=== PATIENT | male | born 1960 | race Caucasian/White ===

== ENCOUNTER 2018-01-19 11:45 | Inpatient (IN) | payer BC, OTHER ==
[2018-01-19] MEDS ORDERED: Albuterol/Ipratropium 3.0-0.5 MG/3 ML Neb Soln NEB ONE (11:49)
[2018-01-19] MEDS ORDERED: Sodium Chloride 0.9% 1,000 ML IV SCH (12:00)
--- NOTE | 2018-01-19 12:28 | EDM.PDOC ---
ED HPI GENERAL MEDICAL PROBLEM - General Chief Complaint: Chest Pain Stated Complaint: CHEST PAIN AND SHORTNESS OF BREATH Time Seen by Provider: 01/19/18 12:28 Source of Information: Reports: Patient - History of Present Illness INITIAL COMMENTS - FREE TEXT/NARRATIVE: HISTORY AND PHYSICAL: History of present illness: []Patient presents with chest pain and shortness breath increasing over the last month, she has productive sputum ranging from yellow to brown, chest pain is 3 out of 10 nonradiating and reproducible at the apex on the left can also change symptoms with movement of the left arm No fever nausea vomiting chills sweats no headache dizziness palpitation no bowel or urine symptoms Review of systems: As per history of present illness and below otherwise all systems reviewed and negative. Past medical history: As per history of present illness and as reviewed below otherwise noncontributory. Surgical history: As per history of present illness and as reviewed below otherwise noncontributory. Social history: No reported history of drug or alcohol abuse. Family history: As per history of present illness and as reviewed below otherwise noncontributory. Physical exam: HEENT: Atraumatic, normocephalic, pupils reactive, negative for conjunctival pallor or scleral icterus, mucous membranes moist, throat clear, neck supple, nontender, trachea midline. Lungs: Clear to auscultation, breath sounds equal bilaterally, chest nontender. Heart: S1S2, regular, negative for clicks, rubs, or JVD. Abdomen: Soft, nondistended, nontender. Negative for masses or hepatosplenomegaly. Negative for costovertebral tenderness. Pelvis: Stable nontender. Genitourinary: Deferred. Rectal: Deferred. Extremities: Atraumatic, negative for cords or calf pain. Neurovascular unremarkable. Neuro: Awake, alert, oriented. Cranial nerves II through XII unremarkable. Cerebellum unremarkable. Motor and sensory unremarkable throughout. Exam nonfocal. Diagnostics: [CBC CMP troponin EKG Chest 1 view ] Therapeutics: [ saline Zosyn Solu-Medrol DuoNeb ] Impression: [ left upper lobe pneumonia versus mass ] Definitive disposition and diagnosis as appropriate pending reevaluation and review of above. Left Chest Pain Score (Numeric/FACES): 3 - Related Data Allergies Allergy/AdvReac Type Severity Reaction Status Date / Time No Known Allergies Allergy Verified 05/02/15 09:52 Home Meds: Home Meds Albuterol [Proair HFA] 2 puff INH Q4HR PRN 01/24/14 [History] Budesonide/Formoterol [Symbicort 160-4.5 Mcg Inhaler] 10.2 gm IH ASDIRECTED [History] Past Medical History HEENT History: Reports: None Cardiovascular History: Reports: SOB on Exertion Respiratory History: Reports: COPD Gastrointestinal History: Reports: None Genitourinary History: Reports: None Musculoskeletal History: Reports: None Neurological History: Reports: None Psychiatric History: Reports: Anxiety Endocrine/Metabolic History: Reports: None Hematologic History: Reports: None Oncologic (Cancer) History: Reports: None Dermatologic History: Reports: None - Infectious Disease History Infectious Disease History: Reports: None - Past Surgical History HEENT Surgical History: Reports: None GI Surgical History: Reports: None Musculoskeletal Surgical History: Reports: None Social & Family History - Tobacco Use Smoking Status *Q: Former Smoker Used Tobacco, but Quit: Yes Month/Year Tobacco Last Used: 08/2012 - Caffeine Use Caffeine Use: Reports: None - Recreational Drug Use Recreational Drug Use: No ED ROS GENERAL - Review of Systems Review Of Systems: See Below ED EXAM, GENERAL - Physical Exam Exam: See Below Course - Vital Signs Last Recorded V/S: Last Vital Signs Temp 97.1 F 01/19/18 11:53 Pulse 79 01/19/18 11:53 Resp 18 01/19/18 11:53 BP 123/83 01/19/18 11:53 Pulse Ox 95 01/19/18 11:53 - Orders/Labs/Meds Orders: Active Orders 24 hr Category Date Time Status EKG Documentation Completion [RC] STAT Care 01/19/18 11:48 Active RT Aerosol Therapy [RC] ASDIRECTED Care 01/19/18 11:49 Active UA W/MICROSCOPIC [URIN] Stat Lab 01/19/18 11:48 Ordered Piperacillin/Tazobactam [Piperacil-Tazobact] 3.375 gm Med 01/19/18 12:41 Active Sodium Chloride 0.9% [Normal Saline] 50 ml IV ONETIME Sodium Chloride 0.9% [Normal Saline] 1,000 ml Med 01/19/18 12:00 Active IV STAT Medication Orders Sodium Chloride (Normal Saline) 1,000 mls @ 125 mls/hr IV STAT GAYATHRI Last Admin: 01/19/18 12:18 Dose: 125 mls/hr Piperacillin Sod/Tazobactam (Sod 3.375 gm/ Sodium Chloride) 50 mls @ 100 mls/ hr IV ONETIME ONE Stop: 01/19/18 13:10 Labs: Laboratory Tests 01/19/18 01/19/18 01/19/18 Range/Units 11:55 11:55 11:55 WBC 17.83 H (4.0-11.0) K/uL RBC 3.83 L (4.50-5.90) M/uL Hgb 12.3 L (13.0-17.0) g/dL Hct 35.5 L (38.0-50.0) % MCV 92.7 (80.0-98.0) fL MCH 32.1 H (27.0-32.0) pg MCHC 34.6 (31.0-37.0) g/dL RDW Std Deviation 42.2 (28.0-62.0) fl RDW Coeff of Joshua 12 (11.0-15.0) % Plt Count 462 H (150-400) K/uL MPV 11.70 (7.40-12.00) fL Add Manual Diff YES Neutrophils % (Manual) 83 H (48.0-80.0) % Band Neutrophils % 3 % Lymphocytes % (Manual) 9 L (16.0-40.0) % Monocytes % (Manual) 5 (0.0-15.0) % Nucleated RBC % 0.0 /100WBC Absolute Seg Neuts 14.8 H (1.4-5.7) Band Neutrophils # 0.5 Lymphocytes # (Manual) 1.6 (0.6-2.4) Monocytes # (Manual) 0.9 H (0.0-0.8) Nucleated RBCs # 0 K/uL INR 1.13 Sodium 137 (136-148) mmol/L Potassium 3.1 L (3.5-5.1) mmol/L Chloride 100 (98-107) mmol/L Carbon Dioxide 25.4 (21.0-32.0) mmol/L BUN 11 (7.0-18.0) mg/dL Creatinine 1.0 (0.8-1.3) mg/dL Est Cr Clr Drug Dosing TNP Estimated GFR (MDRD) > 60.0 ml/min Glucose 107 H (74-106) mg/dL Calcium 8.7 (8.5-10.1) mg/dL Total Bilirubin 0.3 (0.2-1.0) mg/dL AST 13 L (15-37) IU/L ALT 12 L (14-63) IU/L Alkaline Phosphatase 67 (46-116) U/L Troponin I < 0.050 (0.000-0.056) ng/mL Total Protein 8.4 H (6.4-8.2) g/dL Albumin 2.7 L (3.4-5.0) g/dL Globulin 5.7 H (2.0-3.5) g/dL Albumin/Globulin Ratio 0.5 L (1.3-2.8) Lipase 187 (73-393) U/L Meds: Medications Generic Name Dose Route Start Last Admin Trade Name Freq PRN Reason Stop Dose Admin Sodium Chloride 1,000 mls @ 125 mls/hr 01/19/18 12:00 01/19/18 12:18 Normal Saline IV 125 mls/hr STAT GAYATHRI Administration Piperacillin Sod/Tazobactam 50 mls @ 100 mls/hr 01/19/18 12:41 Sod 3.375 gm/ Sodium Chloride IV 01/19/18 13:10 ONETIME ONE Discontinued Medications Generic Name Dose Route Start Last Admin Trade Name Freq PRN Reason Stop Dose Admin Albuterol/Ipratropium 3 ml 01/19/18 11:49 01/19/18 12:17 Duoneb 3.0-0.5 Mg/3 Ml NEB 01/19/18 11:50 3 ml ONETIME ONE Administration Sodium Chloride Confirm 01/19/18 12:57 Normal Saline Administered 01/19/18 12:58 Dose 50 mls @ as directed .ROUTE .STK-MED ONE Departure - Departure Time of Disposition: 13:03 Disposition: Refer to Observation Condition: Poor Clinical Impression: Cavitary lesion of lung - Discharge Information Forms: ED Department Discharge - My Orders Last 24 Hours: My Active Orders 01/19/18 11:48 EKG Documentation Completion [RC] STAT UA W/MICROSCOPIC [URIN] Stat 01/19/18 11:49 RT Aerosol Therapy [RC] ASDIRECTED 01/19/18 12:00 Sodium Chloride 0.9% [Normal Saline] 1,000 ml IV STAT 01/19/18 12:41 Piperacillin/Tazobactam [Piperacil-Tazobact] 3.375 gm Sodium Chloride 0.9% [ Normal Saline] 50 ml IV ONETIME - Assessment/Plan Last 24 Hours: My Active Orders 01/19/18 11:48 EKG Documentation Completion [RC] STAT UA W/MICROSCOPIC [URIN] Stat 01/19/18 11:49 RT Aerosol Therapy [RC] ASDIRECTED 01/19/18 12:00 Sodium Chloride 0.9% [Normal Saline] 1,000 ml IV STAT 01/19/18 12:41 Piperacillin/Tazobactam [Piperacil-Tazobact] 3.375 gm Sodium Chloride 0.9% [ Normal Saline] 50 ml IV ONETIME
--- NOTE | 2018-01-19 12:31 | CR ---
Portable chest Clinical history: Shortness of breath Comparison: April 30, 2015. Findings: There is airspace density in the left upper lung with cavitation and an air-fluid level. Th is represents either a cavitary mass such as a squamous carcinoma or possible granulomatous process o r gram-negative cavitary pneumonia and such as hemoptysis influenza. Cavitary mass is favored. Right lung is clear. Impression: Cavitary mass/infiltrate left upper lung. Mass is favored. Opportunistic infection or gra m-negative pneumonia is a possibility but less likely
[2018-01-19 12:41] LABS: CHLORIDE,CL 100 mmol/L (98-107); SODIUM,NA 137 mmol/L (136-148)
[2018-01-19] MEDS ORDERED: Piperacillin/Tazobactam 3.375 GM in Sodium Chloride 0.9% 50 ML IV ONE (12:41)
[2018-01-19] MEDS ORDERED: Sodium Chloride 0.9% 50 ML ONE ×2 (12:57→13:04)
[2018-01-19] MEDS ORDERED: Ondansetron 4 MG Tab.DIS PO PRN (14:41)
[2018-01-19] MEDS: Enoxaparin 40 MG/0.4 ML Syringe SUBCUT SCH (15:06)
[2018-01-19] MEDS ORDERED: Iopamidol 755 MG/ML 500 ML Multipack Bottle IVPUSH STA (15:28)
[2018-01-19] MEDS ORDERED: Potassium Chloride 20 MEQ Tab.ER PO ONE (15:35)
--- NOTE | 2018-01-19 15:35 | PCM.HP ---
H&P History of Present Illness - General Date of Service: 01/19/18 Admit Problem/Dx: Admission Diagnosis/Problem Admission Diagnosis/Problem Pneumonia Source of Information: Patient, Old Records (Dr Machado records and CT from 2014) History Limitations: Reports: No Limitations - History of Present Illness Initial Comments - Free Text/Narative: This 57 year old male with pmh of asthma and mild COPD, tobacco use, and alcohol use presented to the ED with concerns of 10 days of productive cough and some chest pain with coughing and moving his L arm. He reports he normally has had a cough but the sputum is always yellow to clear. 10 days ago he awoke and noted brown sputum, which was clear during the day to yellow again. Denies blood in his sputum. He denies feeling fevers chills or significant SOB. He denies URI symptoms. He reports waking up with sweats intermittently but no fevers. He denies malaise, body aches. He reports a few months ago he started dieting to lose weight and has lost 20 lbs intentionally. He reports chest pain , has a feeling of "something up here". (pointing to L upper chest, L axilla, and back). He denies palpitations, abdominal pain, urinary troubles. He is originally from [place], but has been in the [place] area living in his [facility] for 6 years now. He denies out of the country travel recently. He reports quitting smoking 5 years ago and stopped drinking hard alcohol 3-4 weeks ago. He reports drinking quite heavily prior to this but felt he was making his life worse with the alcohol. In the ED leukocytosis noted at 17,830. Hgb 12.3. Platelets 462. K+ 3.1 BMP otherwise normal. troponin negative. CXR revealed "cavitary mass/infiltrate in left upper lung. Mass is favored. Opportunistic infection or gram negative pneumonia is possibility but less likely." VS have been stable. Afebrile. He was treated with ZOsyn, Duoneb and IVFs. He was admitted inpatient for dyspnea and pneumonia or pulmonary mass. Left Chest Pain Score (Numeric/FACES): 2 - Related Data Allergies/Adverse Reactions: Allergies Allergy/AdvReac Type Severity Reaction Status Date / Time No Known Allergies Allergy Verified 05/02/15 09:52 Home Medications: Home Meds Budesonide/Formoterol [Symbicort 160-4.5 Mcg Inhaler] 2 puff IH BID 04/30/15 [ History] Albuterol [Ventolin HFA] 1 puff INH Q4H PRN 01/19/18 [History] Past Medical History HEENT History: Reports: None Cardiovascular History: Reports: SOB on Exertion. Denies: Afib, Blood Clots/VTE /DVT, CAD, High Cholesterol, Hypertension, MS Respiratory History: Reports: Asthma, COPD, SOB Gastrointestinal History: Reports: None. Denies: GERD Genitourinary History: Reports: None Musculoskeletal History: Reports: None Neurological History: Reports: None. Denies: CVA, Migraines, Seizure, TIA Psychiatric History: Reports: Anxiety Endocrine/Metabolic History: Reports: Obesity/BMI 30+. Denies: Diabetes, Type II Hematologic History: Reports: None Oncologic (Cancer) History: Reports: None Dermatologic History: Reports: None - Infectious Disease History Infectious Disease History: Reports: None. Denies: TB - Past Surgical History HEENT Surgical History: Reports: None Respiratory Surgical History: Reports: Tracheostomy, Other (See Below) Other Respiratory Surgeries/Procedures: Had tracheostomy at age 36 due to [place] angina with subsequent I&D of submandibular abscess after infected tooth was extracted GI Surgical History: Reports: None Musculoskeletal Surgical History: Reports: None Social & Family History - Family History Family Medical History: Noncontributory - Tobacco Use Smoking Status *Q: Former Smoker Tobacco Use Within Last Twelve Months: Cigarettes Used Tobacco, but Quit: Yes Month/Year Tobacco Last Used: 2012 - Caffeine Use Caffeine Use: Reports: None - Alcohol Use Alcohol Use History: Yes Date of Last Drink: 12/30/17 - Recreational Drug Use Recreational Drug Use: No - Living Situation & Occupation Living situation: Reports: Single Occupation: Unemployed (Lives in [facility].) H&P Review of Systems - Review of Systems: Review Of Systems: See Below General: Denies: Fever, Chills, Malaise, Fatigue, Night Sweats, Decreased Appetite HEENT: Reports: No Symptoms. Denies: Headaches, Hearing Changes, Sinus Congestion, Sore Throat, Vertigo Pulmonary: Reports: Shortness of Breath, Pleuritic Chest Pain, Cough, Sputum. Denies: Wheezing, Hemoptysis Cardiovascular: Reports: Dyspnea on Exertion. Denies: Chest Pain, Edema, Lightheadedness, Claudication Gastrointestinal: Reports: No Symptoms. Denies: Abdominal Pain, Anorexia, Black Stool, Bloody Stool, Decreased Appetite, Nausea, Vomiting Genitourinary: Reports: No Symptoms. Denies: Dysuria, Frequency, Burning, Pain Musculoskeletal: Reports: No Symptoms Skin: Reports: No Symptoms Psychiatric: Reports: No Symptoms Neurological: Reports: No Symptoms Hematologic/Lymphatic: Reports: No Symptoms Immunologic: Reports: No Symptoms Exam - Exam Exam: See Below - Vital Signs Vital Signs: Last Vital Signs Temp 97.1 F 01/19/18 11:53 Pulse 63 01/19/18 13:40 Resp 18 01/19/18 13:40 BP 112/79 01/19/18 13:40 Pulse Ox 95 01/19/18 11:53 Weight: 99.79 kg - Exam General: Alert, Oriented, Cooperative HEENT: Conjunctiva Clear, Mucosa Moist & Joanna, Nares Patent, Posterior Pharynx Clear Neck: Supple, Trachea Midline. No: Lymphadenopathy Lungs: Normal Respiratory Effort, Crackles (L upper lobe). No: Wheezing Cardiovascular: Regular Rate, Regular Rhythm, Normal S1, Normal S2. No: Systolic Murmur GI/Abdominal Exam: Normal Bowel Sounds, Soft, Non-Tender, No Distention Back Exam: Normal Inspection, Full Range of Motion, NT Extremities: Normal Inspection, Normal Range of Motion, Non-Tender, No Pedal Edema, Normal Capillary Refill, Other (no lymphadenopathy to axilla) Peripheral Pulses: 2+: Posterior Tibial (L), Posterior Tibial (R), Dorsalis Pedis (L), Dorsalis Pedis (R) Neurological: Cranial Nerves Intact Neuro Extensive - Mental Status: Alert, Oriented x3, Normal Mood/Affect, Normal Cognition Neuro Extensive - Motor, Sensory, Reflexes: CN II-XII Intact Psychiatric: Alert, Normal Affect, Normal Mood - Patient Data Lab Results Last 24 hrs: Laboratory Results - last 24 hr 01/19/18 01/19/18 01/19/18 Range/Units 11:55 11:55 11:55 WBC 17.83 H (4.0-11.0) K/uL RBC 3.83 L (4.50-5.90) M/uL Hgb 12.3 L (13.0-17.0) g/dL Hct 35.5 L (38.0-50.0) % MCV 92.7 (80.0-98.0) fL MCH 32.1 H (27.0-32.0) pg MCHC 34.6 (31.0-37.0) g/dL RDW Std Deviation 42.2 (28.0-62.0) fl RDW Coeff of Joshua 12 (11.0-15.0) % Plt Count 462 H (150-400) K/uL MPV 11.70 (7.40-12.00) fL Add Manual Diff YES Neutrophils % (Manual) 83 H (48.0-80.0) % Band Neutrophils % 3 % Lymphocytes % (Manual) 9 L (16.0-40.0) % Monocytes % (Manual) 5 (0.0-15.0) % Nucleated RBC % 0.0 /100WBC Absolute Seg Neuts 14.8 H (1.4-5.7) Band Neutrophils # 0.5 Lymphocytes # (Manual) 1.6 (0.6-2.4) Monocytes # (Manual) 0.9 H (0.0-0.8) Nucleated RBCs # 0 K/uL INR 1.13 Sodium 137 (136-148) mmol/L Potassium 3.1 L (3.5-5.1) mmol/L Chloride 100 (98-107) mmol/L Carbon Dioxide 25.4 (21.0-32.0) mmol/L BUN 11 (7.0-18.0) mg/dL Creatinine 1.0 (0.8-1.3) mg/dL Est Cr Clr Drug Dosing TNP Estimated GFR (MDRD) > 60.0 ml/min Glucose 107 H (74-106) mg/dL Calcium 8.7 (8.5-10.1) mg/dL Total Bilirubin 0.3 (0.2-1.0) mg/dL AST 13 L (15-37) IU/L ALT 12 L (14-63) IU/L Alkaline Phosphatase 67 (46-116) U/L Troponin I < 0.050 (0.000-0.056) ng/mL Total Protein 8.4 H (6.4-8.2) g/dL Albumin 2.7 L (3.4-5.0) g/dL Globulin 5.7 H (2.0-3.5) g/dL Albumin/Globulin Ratio 0.5 L (1.3-2.8) Lipase 187 (73-393) U/L Result Diagrams: 01/19/18 11:55 01/19/18 11:55 *Q Meaningful Use (ADM) - VTE Risk Assess *Q Each Risk Factor Represents 1 Point: Age 41 - 59 years, Abnormal Pulmonary Function (COPD) Total Score 1 Point Risk Factors: 2 Each Risk Factor Represents 2 Points: None Total Score 2 Point Risk Factors: 0 Each Risk Factor Represents 3 Points: None Total Score 3 Point Risk Factors: 0 Each Risk Factor Represents 5 Points: None Total Score 5 Point Risk Factors: 0 Venous Thromboembolism Risk Factor Score *Q: 2 - Problem List (1) Cavitary lesion of lung SNOMED Code(s): 537675312 ICD Code: J98.4 - OTHER DISORDERS OF LUNG Status: Acute Current Visit: No (2) History of tobacco abuse SNOMED Code(s): 0914621872697, 0973247269878 ICD Code: Z87.891 - PERSONAL HISTORY OF NICOTINE DEPENDENCE Status: Chronic Current Visit: Yes (3) Asthma SNOMED Code(s): 614046928 ICD Code: J45.909 - UNSPECIFIED ASTHMA, UNCOMPLICATED Status: Chronic Current Visit: Yes (4) COPD (chronic obstructive pulmonary disease) SNOMED Code(s): 31905950 ICD Code: J44.9 - CHRONIC OBSTRUCTIVE PULMONARY DISEASE, UNSPECIFIED Status : Chronic Current Visit: Yes Qualifiers: COPD type: chronic bronchitis Chronic bronchitis type: simple Qualified Code(s): J41.0 - Simple chronic bronchitis (5) Anxiety SNOMED Code(s): 75405682 ICD Code: F41.9 - ANXIETY DISORDER, UNSPECIFIED Status: Chronic Current Visit: Yes Problem List Initiated/Reviewed/Updated: Yes Orders Last 24hrs: Active Orders 24 hr Category Date Time Status Admission Status [Patient Status] [ADT] Stat ADT 01/19/18 13:04 Active Ambulate [RC] ASDIRECTED Care 01/19/18 14:41 Ordered EKG Documentation Completion [RC] STAT Care 01/19/18 11:48 Active Intake and Output [RC] QSHIFT Care 01/19/18 14:41 Ordered May Shower [RC] ASDIRECTED Care 01/19/18 14:41 Ordered Oxygen Therapy [RC] PRN Care 01/19/18 14:41 Ordered RT Aerosol Therapy [RC] ASDIRECTED Care 01/19/18 11:49 Active RT Aerosol Therapy [RC] ASDIRECTED Care 01/19/18 14:43 Ordered Telemetry Monitoring [Cardiac Monitoring] [RC] . Care 01/19/18 14:45 Ordered DIRECTED Up ad Donna [RC] ASDIRECTED Care 01/19/18 14:41 Ordered VTE/DVT Education [RC] PER UNIT ROUTINE Care 01/19/18 14:41 Ordered Vital Signs [RC] Q4H Care 01/19/18 14:41 Ordered Regular Diet [DIET] Diet 01/19/18 Dinner Ordered Chest w Cont [CT] Urgent Exams 01/19/18 14:40 Ordered BASIC METABOLIC PANEL,BMP [CHEM] AM Lab 01/20/18 05:11 Ordered CBC WITH AUTO DIFF [HEME] AM Lab 01/20/18 05:11 Ordered CULTURE SPUTUM + SMEAR [RM] Stat Lab 01/19/18 14:41 Ordered UA W/MICROSCOPIC [URIN] Stat Lab 01/19/18 11:48 Ordered Acetaminophen [Tylenol] Med 01/19/18 14:41 Ordered 650 mg PO Q4H PRN Albuterol/Ipratropium [DuoNeb 3.0-0.5 MG/3 ML] Med 01/19/18 14:43 Ordered 3 ml NEB Q4HRRT PRN Enoxaparin [Lovenox] Med 01/19/18 14:45 Ordered 40 mg SUBCUT Q24H Ondansetron [Zofran ODT] Med 01/19/18 14:41 Ordered 4 mg PO Q4H PRN Piperacillin/Tazobactam [Piperacil-Tazobact] 4.5 gm Med 01/19/18 18:00 Ordered Sodium Chloride 0.9% [Normal Saline] 100 ml IV Q6H Sodium Chloride 0.9% [Normal Saline] 1,000 ml Med 01/19/18 12:00 Active IV STAT Resuscitation Status Routine Resus Stat 01/19/18 14:41 Ordered Medication Orders Acetaminophen (Tylenol) 650 mg PO Q4H PRN PRN Reason: Pain (mild 1-3) Albuterol/Ipratropium (Duoneb 3.0-0.5 Mg/3 Ml) 3 ml NEB Q4HRRT PRN PRN Reason: dyspnea/wheezing Enoxaparin Sodium (Lovenox) 40 mg SUBCUT Q24H GAYATHRI Last Admin: 01/19/18 15:06 Dose: 40 mg Sodium Chloride (Normal Saline) 1,000 mls @ 125 mls/hr IV STAT GAYATHRI Stop: 01/19/18 23:00 Last Admin: 01/19/18 12:18 Dose: 125 mls/hr Piperacillin Sod/Tazobactam (Sod 4.5 gm/ Sodium Chloride) 100 mls @ 100 mls/hr IV Q6H GAYATHRI Ondansetron HCl (Zofran Odt) 4 mg PO Q4H PRN PRN Reason: nausea, able to take PO Assessment/Plan Comment:: This 57 year old male admitted with a new cavitary lesion to L upper lung, probable mass or pneumonia 1. Cavitary lesion to lung: Leukocytosis, no fevers or malaise. Otherwise well appearing. Will obtain sputum culture. Will obtain Chest CT with contrast today. Zosyn 4.5 gm IV Q6hr to cover for possible infectious process. Has been seeing Pulmonology, Dr Machado in [place]. Last saw her 1 year ago for follow up , at that time he had no concerns. CT of chest 2014, revealed no lung nodules. 2. Asthma/COPD: Continue albuterol PRN and Symbicort. Duonebs PRN. VTE prophylaxis: Lovenox
[2018-01-19] MEDS ORDERED: Albuterol 8 GM Inhaler INH PRN (15:55)
--- NOTE | 2018-01-19 17:18 | PCM.SN ---
- Free Text/Narrative Note: Reviewed CT results with Dr Holland. "Large 6 cm soft tissue mass with central cavitation is present in the left lung apex. Differential diagnosis includes non -small cell lung cancer, bacterial pneumonia with abscess formation, fungal infection such as aspergillosis, and mycobacterial infection. Pulmonary consultation is recommended for management of this finding. This lesion would be amenable to image guided biopsy. Moderate left mediastinal lymphadenopathy could be reactive or metastatic. No other signs of metastatic disease in the chest or upper abdomen Attempted to call pulmonolgy in [place], currently unavailable. Also attempted pulmonology in [facility] and no one is special education associate past 1630. Dr Machado is back special education associate at 0700 tomorrow. At this time will place patient on Airborne precautions and obtain Quantiferon testing along with AFB sputum in the morning. Will call [facility] in am for further recommendations. Discussed with patient results of CT, frustrated with not finding a definitive answer now. I let him know I would be contacting Pulmonology in the morning and educated him on the need for Airborne precautions until we know more. He verbalized understanding.
[2018-01-19] MEDS: Piperacillin/Tazobactam 4.5 GM in Sodium Chloride 0.9% 100 ML IV SCH ×2 (17:46→23:36)
[2018-01-19] MEDS: BUDESONIDE INH SCH (20:14)
[2018-01-19] MEDS: FORMOTEROL INH SCH (20:14)
[2018-01-19] MEDS: Acetaminophen 325 MG Tab PO PRN (23:54)
[2018-01-20 05:33] LABS: CHLORIDE,CL 104 mmol/L (98-107); SODIUM,NA 140 mmol/L (136-148)
[2018-01-20] MEDS: Piperacillin/Tazobactam 4.5 GM in Sodium Chloride 0.9% 100 ML IV SCH ×3 (06:18→17:22)
[2018-01-20] MEDS: Albuterol/Ipratropium 3.0-0.5 MG/3 ML Neb Soln NEB PRN ×2 (08:11→20:59)
[2018-01-20] MEDS: BUDESONIDE INH SCH ×2 (08:18→21:19)
[2018-01-20] MEDS: FORMOTEROL INH SCH ×2 (08:18→21:19)
--- NOTE | 2018-01-20 09:13 | PCM.PN ---
- General Info Date of Service: 01/20/18 Admission Dx/Problem (Free Text): Admission Diagnosis/Problem Admission Diagnosis/Problem Pneumonia Subjective Update: Feeling a little better today. Feels less foggy. Continues to have productive cough, brown tinged in am then progressively improves to yellow throughout the day. No night sweats last night. Functional Status: Reports: Pain Controlled, Tolerating Diet, Ambulating, Urinating - Review of Systems General: Reports: No Symptoms. Denies: Fever, Fatigue, Chills, Night Sweats HEENT: Reports: No Symptoms. Denies: Headaches, Sore Throat, Rhinitis, Visual Changes Pulmonary: Reports: Shortness of Breath (intermittent), Sputum. Denies: Pleuritic Chest Pain, Hemoptysis, Wheezing Cardiovascular: Reports: No Symptoms. Denies: Chest Pain, Palpitations, Edema, Lightheadedness Gastrointestinal: Reports: No Symptoms. Denies: Abdominal Pain, Nausea, Vomiting Genitourinary: Reports: No Symptoms. Denies: Dysuria, Frequency, Burning, Pain Musculoskeletal: Reports: No Symptoms Skin: Reports: No Symptoms Neurological: Reports: No Symptoms Psychiatric: Reports: No Symptoms - Patient Data Vitals - Most Recent: Last Vital Signs Temp 99.1 F 01/20/18 08:00 Pulse 70 01/20/18 04:00 Resp 20 01/20/18 08:00 BP 106/78 01/20/18 08:00 Pulse Ox 92 L 01/20/18 08:00 Weight - Most Recent: 99.79 kg I&O - Last 24 Hours: Intake & Output 01/19/18 01/20/18 01/20/18 22:59 06:59 14:59 Intake Total 1270 1100 320 Output Total 300 Balance 1270 800 320 Lab Results Last 24 Hours: Laboratory Results - last 24 hr 01/19/18 01/19/18 01/19/18 Range/Units 11:55 11:55 11:55 WBC 17.83 H (4.0-11.0) K/uL RBC 3.83 L (4.50-5.90) M/uL Hgb 12.3 L (13.0-17.0) g/dL Hct 35.5 L (38.0-50.0) % MCV 92.7 (80.0-98.0) fL MCH 32.1 H (27.0-32.0) pg MCHC 34.6 (31.0-37.0) g/dL RDW Std Deviation 42.2 (28.0-62.0) fl RDW Coeff of Joshua 12 (11.0-15.0) % Plt Count 462 H (150-400) K/uL MPV 11.70 (7.40-12.00) fL Add Manual Diff YES Neutrophils % (Manual) 83 H (48.0-80.0) % Band Neutrophils % 3 % Lymphocytes % (Manual) 9 L (16.0-40.0) % Monocytes % (Manual) 5 (0.0-15.0) % Eosinophils % (Manual) (0.0-7.0) % Nucleated RBC % 0.0 /100WBC Absolute Seg Neuts 14.8 H (1.4-5.7) Band Neutrophils # 0.5 Lymphocytes # (Manual) 1.6 (0.6-2.4) Monocytes # (Manual) 0.9 H (0.0-0.8) Eosinophils # (Manual) (0.0-0.7) Nucleated RBCs # 0 K/uL INR 1.13 Sodium 137 (136-148) mmol/L Potassium 3.1 L (3.5-5.1) mmol/L Chloride 100 (98-107) mmol/L Carbon Dioxide 25.4 (21.0-32.0) mmol/L BUN 11 (7.0-18.0) mg/dL Creatinine 1.0 (0.8-1.3) mg/dL Est Cr Clr Drug Dosing TNP Estimated GFR (MDRD) > 60.0 ml/min Glucose 107 H (74-106) mg/dL Calcium 8.7 (8.5-10.1) mg/dL Total Bilirubin 0.3 (0.2-1.0) mg/dL AST 13 L (15-37) IU/L ALT 12 L (14-63) IU/L Alkaline Phosphatase 67 (46-116) U/L Troponin I < 0.050 (0.000-0.056) ng/mL Total Protein 8.4 H (6.4-8.2) g/dL Albumin 2.7 L (3.4-5.0) g/dL Globulin 5.7 H (2.0-3.5) g/dL Albumin/Globulin Ratio 0.5 L (1.3-2.8) Lipase 187 (73-393) U/L Urine Color Urine Appearance Urine pH (5.0-8.0) Ur Specific [place] (1.001-1.035) Urine Protein (NEGATIVE) mg/dL Urine Glucose (UA) (NEGATIVE) mg/dL Urine Ketones (NEGATIVE) mg/dL Urine Occult Blood (NEGATIVE) Urine Nitrite (NEGATIVE) Urine Bilirubin (NEGATIVE) Urine Urobilinogen (<2.0) EU/dL Ur Leukocyte Esterase (NEGATIVE) Urine RBC (0-2/HPF) Urine WBC (0-5/HPF) Ur Epithelial Cells (NONE-FEW) Urine Bacteria (NEGATIVE) 01/19/18 01/20/18 01/20/18 Range/Units 17:00 05:02 05:02 WBC 14.25 H (4.0-11.0) K/uL RBC 3.31 L (4.50-5.90) M/uL Hgb 10.6 L (13.0-17.0) g/dL Hct 31.0 L (38.0-50.0) % MCV 93.7 (80.0-98.0) fL MCH 32.0 (27.0-32.0) pg MCHC 34.2 (31.0-37.0) g/dL RDW Std Deviation 42.3 (28.0-62.0) fl RDW Coeff of Joshua 13 (11.0-15.0) % Plt Count 406 H (150-400) K/uL MPV 11.70 (7.40-12.00) fL Add Manual Diff YES Neutrophils % (Manual) 81 H (48.0-80.0) % Band Neutrophils % 3 % Lymphocytes % (Manual) 8 L (16.0-40.0) % Monocytes % (Manual) 6 (0.0-15.0) % Eosinophils % (Manual) 1 (0.0-7.0) % Nucleated RBC % 0.0 /100WBC Absolute Seg Neuts 11.5 H (1.4-5.7) Band Neutrophils # 0.4 Lymphocytes # (Manual) 1.1 (0.6-2.4) Monocytes # (Manual) 0.9 H (0.0-0.8) Eosinophils # (Manual) 0.1 (0.0-0.7) Nucleated RBCs # 0 K/uL INR Sodium 140 (136-148) mmol/L Potassium 3.4 L (3.5-5.1) mmol/L Chloride 104 (98-107) mmol/L Carbon Dioxide 26.3 (21.0-32.0) mmol/L BUN 8 (7.0-18.0) mg/dL Creatinine 0.9 (0.8-1.3) mg/dL Est Cr Clr Drug Dosing 83.65 Estimated GFR (MDRD) > 60.0 ml/min Glucose 104 (74-106) mg/dL Calcium 8.4 L (8.5-10.1) mg/dL Total Bilirubin (0.2-1.0) mg/dL AST (15-37) IU/L ALT (14-63) IU/L Alkaline Phosphatase (46-116) U/L Troponin I (0.000-0.056) ng/mL Total Protein (6.4-8.2) g/dL Albumin (3.4-5.0) g/dL Globulin (2.0-3.5) g/dL Albumin/Globulin Ratio (1.3-2.8) Lipase (73-393) U/L Urine Color YELLOW Urine Appearance CLEAR Urine pH 6.0 (5.0-8.0) Ur Specific [place] 1.010 (1.001-1.035) Urine Protein NEGATIVE (NEGATIVE) mg/dL Urine Glucose (UA) NEGATIVE (NEGATIVE) mg/dL Urine Ketones TRACE H (NEGATIVE) mg/dL Urine Occult Blood NEGATIVE (NEGATIVE) Urine Nitrite NEGATIVE (NEGATIVE) Urine Bilirubin NEGATIVE (NEGATIVE) Urine Urobilinogen 0.2 (<2.0) EU/dL Ur Leukocyte Esterase NEGATIVE (NEGATIVE) Urine RBC 0-1 (0-2/HPF) Urine WBC 0-1 (0-5/HPF) Ur Epithelial Cells RARE (NONE-FEW) Urine Bacteria RARE (NEGATIVE) Reggie Results Last 24 Hours: Microbiology 01/19/18 16:00 Gram Stain - Preliminary Sputum - Expectorated Med Orders - Current: Current Medications Acetaminophen (Tylenol) 650 mg PO Q4H PRN PRN Reason: Pain (mild 1-3) Last Admin: 01/19/18 23:54 Dose: 650 mg Albuterol (Ventolin Hfa) 8 gm INH Q4H PRN PRN Reason: Shortness of Breath Albuterol/Ipratropium (Duoneb 3.0-0.5 Mg/3 Ml) 3 ml NEB Q4HRRT PRN PRN Reason: dyspnea/wheezing Last Admin: 01/20/18 08:11 Dose: 3 ml Enoxaparin Sodium (Lovenox) 40 mg SUBCUT Q24H [facility] Last Admin: 01/19/18 15:06 Dose: 40 mg Piperacillin Sod/Tazobactam (Sod 4.5 gm/ Sodium Chloride) 100 mls @ 100 mls/hr IV Q6H [facility] Last Admin: 01/20/18 06:18 Dose: 100 mls/hr Ondansetron HCl (Zofran Odt) 4 mg PO Q4H PRN PRN Reason: nausea, able to take PO Budesonide/Formoterol [ Symbicort 160-4.5 Mcg] 2 Puff 1 each INH BID [facility] Last Admin: 01/20/18 08:18 Dose: Not Given Discontinued Medications Albuterol/Ipratropium (Duoneb 3.0-0.5 Mg/3 Ml) 3 ml NEB ONETIME ONE Stop: 01/19/18 11:50 Last Admin: 01/19/18 12:17 Dose: 3 ml Sodium Chloride (Normal Saline) 1,000 mls @ 125 mls/hr IV STAT [facility] Stop: 01/19/18 23:00 Last Admin: 01/19/18 12:18 Dose: 125 mls/hr Piperacillin Sod/Tazobactam (Sod 3.375 gm/ Sodium Chloride) 50 mls @ 100 mls/ hr IV ONETIME ONE Stop: 01/19/18 13:10 Last Admin: 01/19/18 13:10 Dose: 100 mls/hr Sodium Chloride (Normal Saline) Confirm Administered Dose 50 mls @ as directed .ROUTE .STK-MED ONE Stop: 01/19/18 12:58 Last Admin: 01/19/18 14:59 Dose: Not Given Sodium Chloride (Normal Saline) Confirm Administered Dose 50 mls @ as directed .ROUTE .STK-MED ONE Stop: 01/19/18 13:05 Last Admin: 01/19/18 14:59 Dose: Not Given Iopamidol (Isovue Multipack-370 (76%)) 75 ml IVPUSH ONETIME STA Stop: 01/19/18 15:29 Last Admin: 01/19/18 15:44 Dose: 75 ml Potassium Chloride (Klor-Con M20) 40 meq PO ONETIME ONE Stop: 01/19/18 15:36 Last Admin: 01/19/18 16:01 Dose: 40 meq - Exam Quality Assessment: DVT Prophylaxis. No: Supplemental Oxygen General: Alert, Oriented, Cooperative, No Acute Distress Neck: Supple Lungs: Normal Respiratory Effort, Crackles (L upper lobe), Rhonchi Cardiovascular: Regular Rate, Regular Rhythm GI/Abdominal Exam: Normal Bowel Sounds, Soft, Non-Tender, No Distention Extremities: Normal Inspection, Normal Range of Motion, Non-Tender, No Pedal Edema, Normal Capillary Refill Wound/Incisions: Healing Well Neurological: No New Focal Deficit Psy/Mental Status: Alert, Normal Affect, Normal Mood - Problem List & Annotations (1) Cavitary lesion of lung SNOMED Code(s): 107793471 Code(s): J98.4 - OTHER DISORDERS OF LUNG Status: Acute Current Visit: No (2) History of tobacco abuse SNOMED Code(s): 1643612419879, 4346240901753 Code(s): Z87.891 - PERSONAL HISTORY OF NICOTINE DEPENDENCE Status: Chronic Current Visit: Yes (3) Asthma SNOMED Code(s): 584446415 Code(s): J45.909 - UNSPECIFIED ASTHMA, UNCOMPLICATED Status: Chronic Current Visit: Yes (4) COPD (chronic obstructive pulmonary disease) SNOMED Code(s): 92539089 Code(s): J44.9 - CHRONIC OBSTRUCTIVE PULMONARY DISEASE, UNSPECIFIED Status : Chronic Current Visit: Yes Qualifiers: COPD type: chronic bronchitis Chronic bronchitis type: simple Qualified Code(s): J41.0 - Simple chronic bronchitis (5) Anxiety SNOMED Code(s): 78102128 Code(s): F41.9 - ANXIETY DISORDER, UNSPECIFIED Status: Chronic Current Visit: Yes - Problem List Review Problem List Initiated/Reviewed/Updated: Yes - My Orders Last 24 Hours: My Active Orders 01/19/18 14:40 Chest w Cont [CT] Urgent 01/19/18 14:41 Ambulate [RC] ASDIRECTED Intake and Output [RC] Q12H May Shower [RC] ASDIRECTED Oxygen Therapy [RC] PRN Up ad Donna [RC] ASDIRECTED VTE/DVT Education [RC] PER UNIT ROUTINE Vital Signs [RC] Q4H Acetaminophen [Tylenol] 650 mg PO Q4H PRN Ondansetron [Zofran ODT] 4 mg PO Q4H PRN Resuscitation Status Routine 01/19/18 14:43 RT Aerosol Therapy [RC] ASDIRECTED Albuterol/Ipratropium [DuoNeb 3.0-0.5 MG/3 ML] 3 ml NEB Q4HRRT PRN 01/19/18 14:45 Telemetry Monitoring [Cardiac Monitoring] [RC] Q8H Enoxaparin [Lovenox] 40 mg SUBCUT Q24H 01/19/18 15:55 Albuterol [Ventolin HFA] 8 gm INH Q4H PRN 01/19/18 16:00 AFB STAIN WITH CULTURE Routine CULTURE SPUTUM + SMEAR [RM] Stat 01/19/18 16:29 Specimens to Lab, Nursing [RC] ASDIRECTED 01/19/18 17:45 QUANTIFERON CLIENT INCUBATED [REF] Stat 01/19/18 18:00 Piperacillin/Tazobactam [Piperacil-Tazobact] 4.5 gm Sodium Chloride 0.9% [ Normal Saline] 100 ml IV Q6H 01/19/18 21:00 Patient's Own Medication [Ptom] 1 each INH BID 01/19/18 Dinner Regular Diet [DIET] - Plan Plan:: This 57 year old male admitted with a new cavitary lesion to L upper lung, probable mass or pneumonia 1. Cavitary lesion to lung: Leukocytosis, improving. 14,000 this morning. Continues to improve. CT revealed cavitary lesion with multiple possible etiologies. Continue Zosyn 4.5 gm IV Q6hr to cover for possible anaerobic and gram negative infectious process. I was able to speak with Dr Machado this morning. She does recommended obtaining 3 AFB sputums, along with agreeing with Zosyn for infectious process. She also recommended fungal sputum cultures along with aspergillus workup including, aspergillus IgG antibodies, histoplasmosis, galactomannon, and beta-D glucan. She also requested information to be sent to her via PACS and fax so she can review. I will contact her later today and discuss disposition and follow up. She suggested if this is infectious he may need 3-6 weeks antibiotics and depending on if lesion is improving via CT or not as well as possible biopsy to rule out malignancy. All of this was discussed with Dr Holland as well as Kavya. Kavya understands and agrees with need for further labwork, that may take a while to return. He also understands Airborne precautions due to the need to rule out TB. Quantiferon serum is pending. 2. Asthma/COPD: Continue albuterol PRN and Symbicort. Duonebs PRN. VTE prophylaxis: Lovenox Dispo: Will change to inpatient status due further need for evaluation of cavitary lesion and IV antibiotics.
[2018-01-20] MEDS: Acetaminophen 325 MG Tab PO PRN ×2 (11:57→20:56)
--- NOTE | 2018-01-20 13:01 | CT ---
EXAM DATE: 01/20/18 PATIENT'S AGE: 57 Patient: YAKELIN RAO Facility: [place], [place] Site . Site : 1960 Study: CT Chest [id number] 3:57:45 PM Ordering Physician: Amalia Nino Final Report: INDICATION: Cough and shortness of breath TECHNIQUE: CT chest was acquired with IV contrast. COMPARISON: None. FINDINGS: Lungs and pleural: There is a large soft tissue mass in the left lung apex. The mass measures approximately 6 cm in diameter and contains a large central area of cavitation with a fluid level. Moderate interstitial infiltrates are in the region around the mass. No other masses or nodules. There is bilateral central peribronchial soft tissue thickening. Trace left pleural effusion is present. Heart and vasculature: Heart size is normal. Thoracic aorta and pulmonary artery are normal in caliber.Coronary artery atherosclerosis is present. Lymph nodes/mediastinum: There are multiple moderately enlarged lymph nodes in the left mediastinum. No mass or lymphadenopathy elsewhere. Thyroid gland is normal. Chest wall: No masses. Upper abdomen: Normal. Bones: Unremarkable for age. IMPRESSION: 1. Large 6 cm soft tissue mass with central cavitation is present in the left lung apex. Differential diagnosis includes non-small cell lung cancer, bacterial pneumonia with abscess formation, fungal infection such as aspergillosis, and mycobacterial infection. Pulmonary consultation is recommended for management of this finding. This lesion would be amenable to image guided biopsy. 2. Moderate left mediastinal lymphadenopathy could be reactive or metastatic. No other signs of metastatic disease in the chest or upper abdomen. 3. Coronary artery atherosclerosis. Please note that all CT scans at this facility use dose modulation, iterative reconstruction, and/or weight-based dosing when appropriate to reduce radiation dose to as low as reasonably achievable. Dictated by Grover Daniel MD @ Jan 19 2018 3:58PM (Electronic Signature) Report Signed by Proxy. JIMI
[2018-01-20] MEDS: Enoxaparin 40 MG/0.4 ML Syringe SUBCUT SCH (13:44)
[2018-01-20] MEDS ORDERED: Tuberculin, PPD 5 Units/0.1 ML 1 ML MDV IDERM ONE ×2 (15:05→15:50)
--- NOTE | 2018-01-20 15:13 | PCM.SN ---
- Free Text/Narrative Note: Spoke with both Dr Machado again, who recommends continued antibiotics treatment for suspicous cavitary lesion to L upper lobe. She recommends talking with Infectious disease for follow up and further recommendations on antibiotic treatment. Dr Machado would like to see improvement prior to going in and doing a biopsy or bronchoscopy due to the risk of spreading this infection to other parts of the lung. She feels this is highly suspicious for infection vs malignancy but feels biopsy may still be in Kavya's future. I spoke with Dr Baxter, ID at [facility]. She agrees with Alka, alone, especially if we are seeing improvement already. If Staph aureus were to grow in cultures or if he stops improving she would add Vancomycin. She recommends keeping patient inpatient until we are able to rule out TB. Then outpatient follow up on fungal cultures is ok. She recommends AT LEAST 2 weeks of IV antibiotics and switching to Invanz daily on discharge would be reasonable. She will see him as outpatient and will follow with Chest CT in 2 weeks to monitor improvement and determine if Kavya needs extended IV treatment or if significant improvement is seen she would transition to PO antibiotics for most likely 6 weeks. I spoke with Dr Holland regarding these conversations, and he is agreeable. I also spoke with Kavya to update him on potential course of treatment. He is in agreement and understanding it is important to rule out TB. We will continue with Alka for now and monitor him here. He understands he will need PICC line placement coming this Tuesday for [facility] antibiotics and understands he will need to come to the infusion center daily for this. Which he again is agreeable to.
[2018-01-20] MEDS ORDERED: Tuberculin, PPD 5 Units/0.1 ML 1 ML MDV ONE (15:50)
[2018-01-21] MEDS: Piperacillin/Tazobactam 4.5 GM in Sodium Chloride 0.9% 100 ML IV SCH ×6 (06:00→23:28)
[2018-01-21 06:33] LABS: CHLORIDE,CL 104 mmol/L (98-107); SODIUM,NA 140 mmol/L (136-148)
[2018-01-21] MEDS: BUDESONIDE INH SCH ×2 (08:48→20:00)
[2018-01-21] MEDS: FORMOTEROL INH SCH ×2 (08:48→20:00)
[2018-01-21] MEDS: Albuterol/Ipratropium 3.0-0.5 MG/3 ML Neb Soln NEB PRN ×2 (11:20→23:28)
[2018-01-21] MEDS ORDERED: Potassium Chloride 20 MEQ Tab.ER PO ONE (12:16)
--- NOTE | 2018-01-21 12:37 | PCM.PN ---
- General Info Date of Service: 01/21/18 - Review of Systems Systems Review Comment:: shortness of breath and chest pain improved - Patient Data Vitals - Most Recent: Last Vital Signs Temp 37.0 C 01/21/18 11:54 Pulse 85 01/21/18 11:54 Resp 16 01/21/18 11:54 BP 106/66 01/21/18 11:54 Pulse Ox 93 L 01/21/18 11:54 Weight - Most Recent: 99.79 kg I&O - Last 24 Hours: Intake & Output 01/20/18 01/21/18 01/21/18 22:59 06:59 14:59 Intake Total 820 100 Balance 820 100 Lab Results Last 24 Hours: Laboratory Results - last 24 hr 01/21/18 01/21/18 Range/Units 06:05 06:05 WBC 13.64 H (4.0-11.0) K/uL RBC 3.33 L (4.50-5.90) M/uL Hgb 10.5 L (13.0-17.0) g/dL Hct 31.4 L (38.0-50.0) % MCV 94.3 (80.0-98.0) fL MCH 31.5 (27.0-32.0) pg MCHC 33.4 (31.0-37.0) g/dL RDW Std Deviation 42.5 (28.0-62.0) fl RDW Coeff of Joshua 13 (11.0-15.0) % Plt Count 404 H (150-400) K/uL MPV 11.90 (7.40-12.00) fL Neut % (Auto) 78.8 (48.0-80.0) % Lymph % (Auto) 9.8 L (16.0-40.0) % [place] % (Auto) 9.2 (0.0-15.0) % Eos % (Auto) 2.0 (0.0-7.0) % Baso % (Auto) 0.2 (0.0-1.5) % Neut # (Auto) 10.7 H (1.4-5.7) K/uL Lymph # (Auto) 1.3 (0.6-2.4) K/uL [place] # (Auto) 1.3 H (0.0-0.8) K/uL Eos # (Auto) 0.3 (0.0-0.7) K/uL Baso # (Auto) 0.0 (0.0-0.1) K/uL Nucleated RBC % 0.0 /100WBC Nucleated RBCs # 0 K/uL Sodium 140 (136-148) mmol/L Potassium 3.3 L (3.5-5.1) mmol/L Chloride 104 (98-107) mmol/L Carbon Dioxide 25.9 (21.0-32.0) mmol/L BUN 6 L (7.0-18.0) mg/dL Creatinine 0.9 (0.8-1.3) mg/dL Est Cr Clr Drug Dosing 83.65 mL/min Estimated GFR (MDRD) > 60.0 ml/min Glucose 113 H (74-106) mg/dL Calcium 8.3 L (8.5-10.1) mg/dL Med Orders - Current: Current Medications Acetaminophen (Tylenol) 650 mg PO Q4H PRN PRN Reason: Pain (mild 1-3) Last Admin: 01/20/18 20:56 Dose: 650 mg Albuterol (Ventolin Hfa) 8 gm INH Q4H PRN PRN Reason: Shortness of Breath Albuterol/Ipratropium (Duoneb 3.0-0.5 Mg/3 Ml) 3 ml NEB Q4HRRT PRN PRN Reason: dyspnea/wheezing Last Admin: 01/20/18 20:59 Dose: 3 ml Enoxaparin Sodium (Lovenox) 40 mg SUBCUT Q24H [facility] Last Admin: 01/20/18 13:44 Dose: 40 mg Piperacillin Sod/Tazobactam (Sod 4.5 gm/ Sodium Chloride) 100 mls @ 100 mls/hr IV Q6H [facility] Last Admin: 01/21/18 11:19 Dose: 100 mls/hr Ondansetron HCl (Zofran Odt) 4 mg PO Q4H PRN PRN Reason: nausea, able to take PO Budesonide/Formoterol [ Symbicort 160-4.5 Mcg] 2 Puff 1 each INH BID [facility] Last Admin: 01/21/18 08:48 Dose: Not Given Discontinued Medications Albuterol/Ipratropium (Duoneb 3.0-0.5 Mg/3 Ml) 3 ml NEB ONETIME ONE Stop: 01/19/18 11:50 Last Admin: 01/19/18 12:17 Dose: 3 ml Sodium Chloride (Normal Saline) 1,000 mls @ 125 mls/hr IV STAT [facility] Stop: 01/19/18 23:00 Last Admin: 01/19/18 12:18 Dose: 125 mls/hr Piperacillin Sod/Tazobactam (Sod 3.375 gm/ Sodium Chloride) 50 mls @ 100 mls/ hr IV ONETIME ONE Stop: 01/19/18 13:10 Last Admin: 01/19/18 13:10 Dose: 100 mls/hr Sodium Chloride (Normal Saline) Confirm Administered Dose 50 mls @ as directed .ROUTE .STK-MED ONE Stop: 01/19/18 12:58 Last Admin: 01/19/18 14:59 Dose: Not Given Sodium Chloride (Normal Saline) Confirm Administered Dose 50 mls @ as directed .ROUTE .STK-MED ONE Stop: 01/19/18 13:05 Last Admin: 01/19/18 14:59 Dose: Not Given Iopamidol (Isovue Multipack-370 (76%)) 75 ml IVPUSH ONETIME STA Stop: 01/19/18 15:29 Last Admin: 01/19/18 15:44 Dose: 75 ml Potassium Chloride (Klor-Con M20) 40 meq PO ONETIME ONE Stop: 01/19/18 15:36 Last Admin: 01/19/18 16:01 Dose: 40 meq Potassium Chloride (Klor-Con M20) 40 meq PO ONETIME ONE Stop: 01/21/18 12:17 Tuberculin PPD (Aplisol) 5 unit IDERM ONETIME ONE Stop: 01/20/18 15:06 Last Admin: 01/20/18 15:55 Dose: 5 unit - Exam General: Alert, Oriented Lungs: Clear to Auscultation, Normal Respiratory Effort Cardiovascular: Regular Rate, Regular Rhythm GI/Abdominal Exam: Soft, Non-Tender Extremities: Non-Tender, No Pedal Edema Skin: Warm, Dry, Intact Neurological: No New Focal Deficit - Problem List Review Problem List Initiated/Reviewed/Updated: Yes - Plan Plan:: This 57 year old male admitted with a new cavitary lesion to L upper lung, probable mass or pneumonia 1. Cavitary lesion to lung: Continue zosyn, geting daily sputum cultures to rule out TB 2. Asthma/COPD: Continue albuterol PRN and Symbicort. Duonebs PRN. VTE prophylaxis: Lovenox
[2018-01-21] MEDS: Enoxaparin 40 MG/0.4 ML Syringe SUBCUT SCH (15:33)
[2018-01-21] MEDS: Acetaminophen 325 MG Tab PO PRN (23:54)
[2018-01-22] MEDS: Piperacillin/Tazobactam 4.5 GM in Sodium Chloride 0.9% 100 ML IV SCH ×4 (05:27→23:15)
[2018-01-22 06:03] LABS: CHLORIDE,CL 106 mmol/L (98-107); SODIUM,NA 140 mmol/L (136-148)
[2018-01-22] MEDS: BUDESONIDE INH SCH ×2 (08:33→20:15)
[2018-01-22] MEDS: FORMOTEROL INH SCH ×2 (08:33→20:15)
--- NOTE | 2018-01-22 09:32 | PCM.PN ---
- General Info Date of Service: 01/22/18 Subjective Update: Complaining of persistent cough thats unchanged. No other new complaints. - Review of Systems General: Reports: No Symptoms HEENT: Reports: No Symptoms Pulmonary: Reports: No Symptoms Cardiovascular: Reports: No Symptoms Gastrointestinal: Reports: No Symptoms Genitourinary: Reports: No Symptoms Musculoskeletal: Reports: No Symptoms Skin: Reports: No Symptoms Neurological: Reports: No Symptoms Psychiatric: Reports: No Symptoms - Patient Data Vitals - Most Recent: Last Vital Signs Temp 36.9 C 01/22/18 07:35 Pulse 61 01/22/18 07:35 Resp 18 01/22/18 07:35 BP 127/68 01/22/18 07:35 Pulse Ox 92 L 01/22/18 07:35 Weight - Most Recent: 99.79 kg I&O - Last 24 Hours: Intake & Output 01/21/18 01/22/18 01/22/18 22:59 06:59 14:59 Intake Total 1900 1300 Output Total 400 Balance 1900 900 Lab Results Last 24 Hours: Laboratory Results - last 24 hr 01/22/18 01/22/18 Range/Units 05:34 05:34 WBC 10.88 (4.0-11.0) K/uL RBC 3.44 L (4.50-5.90) M/uL Hgb 10.5 L (13.0-17.0) g/dL Hct 32.3 L (38.0-50.0) % MCV 93.9 (80.0-98.0) fL MCH 30.5 (27.0-32.0) pg MCHC 32.5 (31.0-37.0) g/dL RDW Std Deviation 43.6 (28.0-62.0) fl RDW Coeff of Joshua 13 (11.0-15.0) % Plt Count 363 (150-400) K/uL MPV 11.50 (7.40-12.00) fL Add Manual Diff YES Neutrophils % (Manual) 70 (48.0-80.0) % Band Neutrophils % 2 % Lymphocytes % (Manual) 15 L (16.0-40.0) % Monocytes % (Manual) 9 (0.0-15.0) % Eosinophils % (Manual) 1 (0.0-7.0) % Basophils % (Manual) 1 (0.0-1.5) % Nucleated RBC % 0.0 /100WBC Absolute Seg Neuts 7.6 H (1.4-5.7) Band Neutrophils # 0.2 Lymphocytes # (Manual) 1.6 (0.6-2.4) Monocytes # (Manual) 1.0 H (0.0-0.8) Eosinophils # (Manual) 0.1 (0.0-0.7) Basophils # (Manual) 0.1 (0.0-0.1) Nucleated RBCs # 0 K/uL Sodium 140 (136-148) mmol/L Potassium 3.6 (3.5-5.1) mmol/L Chloride 106 (98-107) mmol/L Carbon Dioxide 26.6 (21.0-32.0) mmol/L BUN 6 L (7.0-18.0) mg/dL Creatinine 0.9 (0.8-1.3) mg/dL Est Cr Clr Drug Dosing 83.65 mL/min Estimated GFR (MDRD) > 60.0 ml/min Glucose 112 H (74-106) mg/dL Calcium 8.6 (8.5-10.1) mg/dL Reggie Results Last 24 Hours: Microbiology 01/19/18 16:00 Gram Stain - Preliminary Sputum - Expectorated Med Orders - Current: Current Medications Acetaminophen (Tylenol) 650 mg PO Q4H PRN PRN Reason: Pain (mild 1-3) Last Admin: 01/21/18 23:54 Dose: 650 mg Albuterol (Ventolin Hfa) 8 gm INH Q4H PRN PRN Reason: Shortness of Breath Albuterol/Ipratropium (Duoneb 3.0-0.5 Mg/3 Ml) 3 ml NEB Q4HRRT PRN PRN Reason: dyspnea/wheezing Last Admin: 01/21/18 23:28 Dose: 3 ml Enoxaparin Sodium (Lovenox) 40 mg SUBCUT Q24H GAYATHRI Last Admin: 01/21/18 15:33 Dose: 40 mg Piperacillin Sod/Tazobactam (Sod 4.5 gm/ Sodium Chloride) 100 mls @ 100 mls/hr IV Q6H GAYATHRI Last Admin: 01/22/18 05:27 Dose: 100 mls/hr Ondansetron HCl (Zofran Odt) 4 mg PO Q4H PRN PRN Reason: nausea, able to take PO Budesonide/Formoterol [ Symbicort 160-4.5 Mcg] 2 Puff 1 each INH BID GAYATHRI Last Admin: 01/22/18 08:33 Dose: Not Given Discontinued Medications Albuterol/Ipratropium (Duoneb 3.0-0.5 Mg/3 Ml) 3 ml NEB ONETIME ONE Stop: 01/19/18 11:50 Last Admin: 01/19/18 12:17 Dose: 3 ml Sodium Chloride (Normal Saline) 1,000 mls @ 125 mls/hr IV STAT GAYATHRI Stop: 01/19/18 23:00 Last Admin: 01/19/18 12:18 Dose: 125 mls/hr Piperacillin Sod/Tazobactam (Sod 3.375 gm/ Sodium Chloride) 50 mls @ 100 mls/ hr IV ONETIME ONE Stop: 01/19/18 13:10 Last Admin: 01/19/18 13:10 Dose: 100 mls/hr Sodium Chloride (Normal Saline) Confirm Administered Dose 50 mls @ as directed .ROUTE .STK-MED ONE Stop: 01/19/18 12:58 Last Admin: 01/19/18 14:59 Dose: Not Given Sodium Chloride (Normal Saline) Confirm Administered Dose 50 mls @ as directed .ROUTE .STK-MED ONE Stop: 01/19/18 13:05 Last Admin: 01/19/18 14:59 Dose: Not Given Iopamidol (Isovue Multipack-370 (76%)) 75 ml IVPUSH ONETIME STA Stop: 01/19/18 15:29 Last Admin: 01/19/18 15:44 Dose: 75 ml Potassium Chloride (Klor-Con M20) 40 meq PO ONETIME ONE Stop: 01/19/18 15:36 Last Admin: 01/19/18 16:01 Dose: 40 meq Potassium Chloride (Klor-Con M20) 40 meq PO ONETIME ONE Stop: 01/21/18 12:17 Last Admin: 01/21/18 12:36 Dose: 40 meq Tuberculin PPD (Aplisol) 5 unit IDERM ONETIME ONE Stop: 01/20/18 15:06 Last Admin: 01/20/18 15:55 Dose: 5 unit - Exam General: Alert, Oriented, Cooperative HEENT: Pupils Equal, Pupils Reactive, EOMI, Mucous Membr. Moist/[place] Neck: Supple Lungs: Clear to Auscultation, Normal Respiratory Effort Cardiovascular: Regular Rate, Regular Rhythm GI/Abdominal Exam: Normal Bowel Sounds, Soft, Non-Tender, No Organomegaly, No Distention Back Exam: Normal Inspection, Full Range of Motion Extremities: Normal Inspection, No Pedal Edema Peripheral Pulses: 2+: Dorsalis Pedis (L), Dorsalis Pedis (R) Psy/Mental Status: Alert, Anxious - Problem List Review Problem List Initiated/Reviewed/Updated: Yes - Plan Plan:: Assessment/Plan: #1. RAY cavitary lesion - pneumonia vs. TB vs. malignancy. Scheduled for picc line placement tomorrow for senior care antibiotics, DC tomorrow. To get a repeat CT scan in two weeks to assess cavitary lesion of suspicion. Will be seeing pulmonology in the upcoming few weeks as well. #2. Leukocytosis - improved #3. Asthma/COPD - PRN meds as ordered
[2018-01-22] MEDS: Albuterol/Ipratropium 3.0-0.5 MG/3 ML Neb Soln NEB PRN ×2 (11:41→23:13)
[2018-01-22] MEDS: Enoxaparin 40 MG/0.4 ML Syringe SUBCUT SCH (15:49)
[2018-01-23] MEDS: Piperacillin/Tazobactam 4.5 GM in Sodium Chloride 0.9% 100 ML IV SCH ×4 (05:32→23:27)
[2018-01-23 06:27] LABS: CHLORIDE,CL 106 mmol/L (98-107); SODIUM,NA 141 mmol/L (136-148)
[2018-01-23] MEDS: FORMOTEROL INH SCH (10:01)
[2018-01-23] MEDS: BUDESONIDE INH SCH (10:01)
[2018-01-23] MEDS: Fluticasone/Salmeterol 250-50 MCG Inhalation Powder 14/Diskus INH SCH ×2 (11:56→21:13)
--- NOTE | 2018-01-23 12:02 | PCM.PN ---
- General Info Date of Service: 01/23/18 Admission Dx/Problem (Free Text): Admission Diagnosis/Problem Admission Diagnosis/Problem Pneumonia Subjective Update: Feeling somewhat improved today. Cough and shortness of breath continue to improve. Cough becoming less productive and sputum more yellow to clear now. NO chest pain. No other concerns. Eager to hear back about TB Functional Status: Reports: Pain Controlled, Tolerating Diet, Ambulating - Review of Systems General: Reports: No Symptoms. Denies: Fever, Weakness, Fatigue, Malaise HEENT: Reports: No Symptoms. Denies: Sore Throat, Rhinitis, Visual Changes Pulmonary: Reports: Shortness of Breath (improving and intermittent), Cough, Sputum (clear to yellow). Denies: Hemoptysis, Wheezing Cardiovascular: Reports: No Symptoms. Denies: Chest Pain Gastrointestinal: Reports: No Symptoms. Denies: Abdominal Pain, Nausea, Vomiting Genitourinary: Reports: No Symptoms. Denies: Dysuria, Frequency, Burning Musculoskeletal: Reports: No Symptoms Skin: Reports: No Symptoms Neurological: Reports: No Symptoms Psychiatric: Reports: No Symptoms - Patient Data Vitals - Most Recent: Last Vital Signs Temp 98 F 01/23/18 08:00 Pulse 71 01/23/18 08:00 Resp 19 01/23/18 08:00 BP 133/74 01/23/18 08:00 Pulse Ox 93 L 01/23/18 08:00 Weight - Most Recent: 99.79 kg I&O - Last 24 Hours: Intake & Output 01/22/18 01/23/18 01/23/18 22:59 06:59 14:59 Intake Total 1480 1000 Output Total 0 Balance 1480 1000 Lab Results Last 24 Hours: Laboratory Results - last 24 hr 01/23/18 01/23/18 Range/Units 05:42 05:42 WBC 10.94 (4.0-11.0) K/uL RBC 3.30 L (4.50-5.90) M/uL Hgb 10.3 L (13.0-17.0) g/dL Hct 31.1 L (38.0-50.0) % MCV 94.2 (80.0-98.0) fL MCH 31.2 (27.0-32.0) pg MCHC 33.1 (31.0-37.0) g/dL RDW Std Deviation 44.1 (28.0-62.0) fl RDW Coeff of Joshua 13 (11.0-15.0) % Plt Count 375 (150-400) K/uL MPV 11.80 (7.40-12.00) fL Neut % (Auto) 73.3 (48.0-80.0) % Lymph % (Auto) 15.1 L (16.0-40.0) % [place] % (Auto) 7.4 (0.0-15.0) % Eos % (Auto) 3.7 (0.0-7.0) % Baso % (Auto) 0.5 (0.0-1.5) % Neut # (Auto) 8.0 H (1.4-5.7) K/uL Lymph # (Auto) 1.7 (0.6-2.4) K/uL [place] # (Auto) 0.8 (0.0-0.8) K/uL Eos # (Auto) 0.4 (0.0-0.7) K/uL Baso # (Auto) 0.1 (0.0-0.1) K/uL Nucleated RBC % 0.0 /100WBC Nucleated RBCs # 0 K/uL Sodium 141 (136-148) mmol/L Potassium 3.6 (3.5-5.1) mmol/L Chloride 106 (98-107) mmol/L Carbon Dioxide 24.9 (21.0-32.0) mmol/L BUN 7 (7.0-18.0) mg/dL Creatinine 1.0 (0.8-1.3) mg/dL Est Cr Clr Drug Dosing 75.28 mL/min Estimated GFR (MDRD) > 60.0 ml/min Glucose 116 H (74-106) mg/dL Calcium 8.4 L (8.5-10.1) mg/dL Reggie Results Last 24 Hours: Microbiology 01/19/18 16:00 Gram Stain - Preliminary Sputum - Expectorated Sputum Culture - Final Normal Respiratory Uri Med Orders - Current: Current Medications Acetaminophen (Tylenol) 650 mg PO Q4H PRN PRN Reason: Pain (mild 1-3) Last Admin: 01/21/18 23:54 Dose: 650 mg Albuterol (Ventolin Hfa) 8 gm INH Q4H PRN PRN Reason: Shortness of Breath Albuterol/Ipratropium (Duoneb 3.0-0.5 Mg/3 Ml) 3 ml NEB Q4HRRT PRN PRN Reason: dyspnea/wheezing Last Admin: 01/22/18 23:13 Dose: 3 ml Enoxaparin Sodium (Lovenox) 40 mg SUBCUT Q24H GAYATHRI Last Admin: 01/22/18 15:49 Dose: 40 mg Piperacillin Sod/Tazobactam (Sod 4.5 gm/ Sodium Chloride) 100 mls @ 100 mls/hr IV Q6H GAYATHRI Last Admin: 01/23/18 05:32 Dose: 100 mls/hr Ondansetron HCl (Zofran Odt) 4 mg PO Q4H PRN PRN Reason: nausea, able to take PO Fluticasone/Salmeterol (Advair Diskus 250-50) 1 puff INH BID GAYATHRI Last Admin: 01/23/18 11:56 Dose: 1 puff Discontinued Medications Albuterol/Ipratropium (Duoneb 3.0-0.5 Mg/3 Ml) 3 ml NEB ONETIME ONE Stop: 01/19/18 11:50 Last Admin: 01/19/18 12:17 Dose: 3 ml Sodium Chloride (Normal Saline) 1,000 mls @ 125 mls/hr IV STAT GAYATHRI Stop: 01/19/18 23:00 Last Admin: 01/19/18 12:18 Dose: 125 mls/hr Piperacillin Sod/Tazobactam (Sod 3.375 gm/ Sodium Chloride) 50 mls @ 100 mls/ hr IV ONETIME ONE Stop: 01/19/18 13:10 Last Admin: 01/19/18 13:10 Dose: 100 mls/hr Sodium Chloride (Normal Saline) Confirm Administered Dose 50 mls @ as directed .ROUTE .STK-MED ONE Stop: 01/19/18 12:58 Last Admin: 01/19/18 14:59 Dose: Not Given Sodium Chloride (Normal Saline) Confirm Administered Dose 50 mls @ as directed .ROUTE .STK-MED ONE Stop: 01/19/18 13:05 Last Admin: 01/19/18 14:59 Dose: Not Given Iopamidol (Isovue Multipack-370 (76%)) 75 ml IVPUSH ONETIME STA Stop: 01/19/18 15:29 Last Admin: 01/19/18 15:44 Dose: 75 ml Budesonide/Formoterol [ Symbicort 160-4.5 Mcg] 2 Puff 1 each INH BID GAYATHRI Last Admin: 01/23/18 10:01 Dose: Not Given Potassium Chloride (Klor-Con M20) 40 meq PO ONETIME ONE Stop: 01/19/18 15:36 Last Admin: 01/19/18 16:01 Dose: 40 meq Potassium Chloride (Klor-Con M20) 40 meq PO ONETIME ONE Stop: 01/21/18 12:17 Last Admin: 01/21/18 12:36 Dose: 40 meq Tuberculin PPD (Aplisol) 5 unit IDERM ONETIME ONE Stop: 01/20/18 15:06 Last Admin: 01/20/18 15:55 Dose: 5 unit - Exam General: Alert, Oriented, Cooperative, No Acute Distress Neck: Supple Lungs: Normal Respiratory Effort, Rhonchi, Wheezing (scant and to RAY) Cardiovascular: Regular Rate, Regular Rhythm GI/Abdominal Exam: Normal Bowel Sounds, Soft, Non-Tender, No Organomegaly, No Distention, No Abnormal Bruit, No Mass, Pelvis Stable Extremities: Normal Inspection, Normal Range of Motion, Non-Tender, No Pedal Edema, Normal Capillary Refill Neurological: No New Focal Deficit Psy/Mental Status: Alert, Normal Affect, Normal Mood - Problem List & Annotations (1) Cavitary lesion of lung SNOMED Code(s): 428891611 Code(s): J98.4 - OTHER DISORDERS OF LUNG Status: Acute Current Visit: No (2) History of tobacco abuse SNOMED Code(s): 7921152118962, 4266914606384 Code(s): Z87.891 - PERSONAL HISTORY OF NICOTINE DEPENDENCE Status: Chronic Current Visit: Yes (3) Asthma SNOMED Code(s): 007992689 Code(s): J45.909 - UNSPECIFIED ASTHMA, UNCOMPLICATED Status: Chronic Current Visit: Yes (4) COPD (chronic obstructive pulmonary disease) SNOMED Code(s): 46147808 Code(s): J44.9 - CHRONIC OBSTRUCTIVE PULMONARY DISEASE, UNSPECIFIED Status : Chronic Current Visit: Yes Qualifiers: COPD type: chronic bronchitis Chronic bronchitis type: simple Qualified Code(s): J41.0 - Simple chronic bronchitis (5) Anxiety SNOMED Code(s): 48018832 Code(s): F41.9 - ANXIETY DISORDER, UNSPECIFIED Status: Chronic Current Visit: Yes - Problem List Review Problem List Initiated/Reviewed/Updated: Yes - My Orders Last 24 Hours: My Active Orders 01/23/18 07:52 PICC Line Insertion [CR] Routine 01/23/18 09:20 RT Post Treatment Assessment [RC] Click to Edit RT Pre-Treatment Assessment [RC] Click to Edit 01/23/18 09:30 Fluticasone/Salmeterol [Advair Diskus 250-50] 1 puff INH BID - Plan Plan:: This 57 year old male admitted with a new cavitary lesion to L upper lung, probable mass or pneumonia 1. Cavitary lesion to lung: Leukocytosis, resolved. Continues to improve.Continue Zosyn 4.5 gm IV Q6hr to cover for possible anaerobic and gram negative infectious process. Tuberculin skin test negative. AFB all three sputums sent, awaiting smear results. First smear should return in next couple days. Quantiferon pending as well. I spoke with Dr Baxter who suggested waiting until at least one AFB smear returned and if negative he could be discharged. He will have PICC line placed today. Coordinate outpatient IV therapy with [place]. Regular sputum culture normal respiratory uri. Fungal and AFB still pending. Outpatient appointments set up with Dr Baxter, ID and Dr Machado, Pulmonology 2. Asthma/COPD: Continue albuterol PRN. Duonebs PRN. Reports he has not taken SYmbicort. Will start Advair. VTE prophylaxis: Lovenox Dispo: Pending AFB smear, 2-3 days.
[2018-01-23] MEDS: Enoxaparin 40 MG/0.4 ML Syringe SUBCUT SCH ×2 (13:46→15:24)
--- NOTE | 2018-01-23 15:57 | CR ---
EXAMINATION: Fluoro and ultrasound guided left-sided PICC line placement. HISTORY: Long-term antibiotics. TECHNIQUE/FINDINGS: After written informed consent was obtained from the patient using ultrasound an d Fluoro guidance under aseptic conditions utilizing 1% lidocaine as local anesthesia left basilic ve in was accessed and 5 [place] PICC catheter was deployed with its tip in the distal superior vena cava . The catheter flushes and withdraws blood well. The catheter is flushed with the diluted heparin. T he catheter secured well. IMPRESSION: Successful Fluoro and ultrasound guided left PICC line placement.
--- NOTE | 2018-01-23 15:57 | CR ---
EXAMINATION: Fluoro and ultrasound guided left-sided PICC line placement. HISTORY: Long-term antibiotics. TECHNIQUE/FINDINGS: After written informed consent was obtained from the patient using ultrasound an d Fluoro guidance under aseptic conditions utilizing 1% lidocaine as local anesthesia left basilic ve in was accessed and 5 [place] PICC catheter was deployed with its tip in the distal superior vena cava . The catheter flushes and withdraws blood well. The catheter is flushed with the diluted heparin. T he catheter secured well. IMPRESSION: Successful Fluoro and ultrasound guided left PICC line placement.
[2018-01-23] MEDS: Albuterol/Ipratropium 3.0-0.5 MG/3 ML Neb Soln NEB PRN (18:54)
[2018-01-24] MEDS: Piperacillin/Tazobactam 4.5 GM in Sodium Chloride 0.9% 100 ML IV SCH (05:07)
[2018-01-24 06:01] LABS: CHLORIDE,CL 107 mmol/L (98-107); SODIUM,NA 141 mmol/L (136-148)
[2018-01-24] MEDS: Fluticasone/Salmeterol 250-50 MCG Inhalation Powder 14/Diskus INH SCH ×2 (09:16→21:13)
--- NOTE | 2018-01-24 10:55 | PCM.PN ---
- General Info Date of Service: 01/24/18 Admission Dx/Problem (Free Text): Admission Diagnosis/Problem Admission Diagnosis/Problem Pneumonia Subjective Update: Feeling better today. Coughing less, and sputum is now mainly yellow in color. No other complaints. Eager to have results and be discharged home. Functional Status: Reports: Pain Controlled, Tolerating Diet, Ambulating, Urinating - Review of Systems General: Reports: No Symptoms. Denies: Fever, Weakness, Fatigue HEENT: Reports: No Symptoms. Denies: Headaches, Sore Throat, Visual Changes Pulmonary: Reports: Cough, Sputum (yellow). Denies: Hemoptysis, Wheezing Cardiovascular: Reports: No Symptoms. Denies: Chest Pain, Palpitations, Edema Gastrointestinal: Reports: No Symptoms. Denies: Abdominal Pain Psychiatric: Reports: No Symptoms - Patient Data Vitals - Most Recent: Last Vital Signs Temp 97.8 F 01/24/18 08:00 Pulse 71 01/24/18 08:00 Resp 17 01/24/18 08:00 BP 119/84 01/24/18 08:00 Pulse Ox 94 L 01/24/18 08:00 Weight - Most Recent: 99.79 kg I&O - Last 24 Hours: Intake & Output 01/23/18 01/24/18 01/24/18 22:59 06:59 14:59 Intake Total 1300 900 Output Total 0 Balance 1300 900 Lab Results Last 24 Hours: Laboratory Results - last 24 hr 01/24/18 01/24/18 Range/Units 05:05 05:05 WBC 10.55 (4.0-11.0) K/uL RBC 3.34 L (4.50-5.90) M/uL Hgb 10.5 L (13.0-17.0) g/dL Hct 31.7 L (38.0-50.0) % MCV 94.9 (80.0-98.0) fL MCH 31.4 (27.0-32.0) pg MCHC 33.1 (31.0-37.0) g/dL RDW Std Deviation 45.0 (28.0-62.0) fl RDW Coeff of Joshua 13 (11.0-15.0) % Plt Count 360 (150-400) K/uL MPV 11.80 (7.40-12.00) fL Neut % (Auto) 71.7 (48.0-80.0) % Lymph % (Auto) 16.9 (16.0-40.0) % [place] % (Auto) 7.1 (0.0-15.0) % Eos % (Auto) 3.9 (0.0-7.0) % Baso % (Auto) 0.4 (0.0-1.5) % Neut # (Auto) 7.6 H (1.4-5.7) K/uL Lymph # (Auto) 1.8 (0.6-2.4) K/uL [place] # (Auto) 0.8 (0.0-0.8) K/uL Eos # (Auto) 0.4 (0.0-0.7) K/uL Baso # (Auto) 0.0 (0.0-0.1) K/uL Nucleated RBC % 0.0 /100WBC Nucleated RBCs # 0 K/uL Sodium 141 (136-148) mmol/L Potassium 3.9 (3.5-5.1) mmol/L Chloride 107 (98-107) mmol/L Carbon Dioxide 24.7 (21.0-32.0) mmol/L BUN 8 (7.0-18.0) mg/dL Creatinine 1.0 (0.8-1.3) mg/dL Est Cr Clr Drug Dosing 75.28 mL/min Estimated GFR (MDRD) > 60.0 ml/min Glucose 119 H (74-106) mg/dL Calcium 8.8 (8.5-10.1) mg/dL Reggie Results Last 24 Hours: Microbiology 01/19/18 16:00 Gram Stain - Final Sputum - Expectorated Sputum Culture - Final Normal Respiratory Uri Med Orders - Current: Current Medications Acetaminophen (Tylenol) 650 mg PO Q4H PRN PRN Reason: Pain (mild 1-3) Last Admin: 01/21/18 23:54 Dose: 650 mg Albuterol (Ventolin Hfa) 8 gm INH Q4H PRN PRN Reason: Shortness of Breath Albuterol/Ipratropium (Duoneb 3.0-0.5 Mg/3 Ml) 3 ml NEB Q4HRRT PRN PRN Reason: dyspnea/wheezing Last Admin: 01/23/18 18:54 Dose: 3 ml Enoxaparin Sodium (Lovenox) 40 mg SUBCUT Q24H [facility] Last Admin: 01/23/18 15:24 Dose: 40 mg Piperacillin Sod/Tazobactam (Sod 4.5 gm/ Sodium Chloride) 100 mls @ 100 mls/hr IV Q6H GAYATHRI Last Admin: 01/24/18 05:07 Dose: 100 mls/hr Ondansetron HCl (Zofran Odt) 4 mg PO Q4H PRN PRN Reason: nausea, able to take PO Fluticasone/Salmeterol (Advair Diskus 250-50) 1 puff INH BID [facility] Last Admin: 01/24/18 09:16 Dose: 1 puff Discontinued Medications Albuterol/Ipratropium (Duoneb 3.0-0.5 Mg/3 Ml) 3 ml NEB ONETIME ONE Stop: 01/19/18 11:50 Last Admin: 01/19/18 12:17 Dose: 3 ml Sodium Chloride (Normal Saline) 1,000 mls @ 125 mls/hr IV STAT GAYATHRI Stop: 01/19/18 23:00 Last Admin: 01/19/18 12:18 Dose: 125 mls/hr Piperacillin Sod/Tazobactam (Sod 3.375 gm/ Sodium Chloride) 50 mls @ 100 mls/ hr IV ONETIME ONE Stop: 01/19/18 13:10 Last Admin: 01/19/18 13:10 Dose: 100 mls/hr Sodium Chloride (Normal Saline) Confirm Administered Dose 50 mls @ as directed .ROUTE .STK-MED ONE Stop: 01/19/18 12:58 Last Admin: 01/19/18 14:59 Dose: Not Given Sodium Chloride (Normal Saline) Confirm Administered Dose 50 mls @ as directed .ROUTE .STK-MED ONE Stop: 01/19/18 13:05 Last Admin: 01/19/18 14:59 Dose: Not Given Iopamidol (Isovue Multipack-370 (76%)) 75 ml IVPUSH ONETIME STA Stop: 01/19/18 15:29 Last Admin: 01/19/18 15:44 Dose: 75 ml Budesonide/Formoterol [ Symbicort 160-4.5 Mcg] 2 Puff 1 each INH BID [facility] Last Admin: 01/23/18 10:01 Dose: Not Given Potassium Chloride (Klor-Con M20) 40 meq PO ONETIME ONE Stop: 01/19/18 15:36 Last Admin: 01/19/18 16:01 Dose: 40 meq Potassium Chloride (Klor-Con M20) 40 meq PO ONETIME ONE Stop: 01/21/18 12:17 Last Admin: 01/21/18 12:36 Dose: 40 meq Tuberculin PPD (Aplisol) 5 unit IDERM ONETIME ONE Stop: 01/20/18 15:06 Last Admin: 01/20/18 15:55 Dose: 5 unit Tuberculin PPD (Aplisol) 5 unit IDERM ONETIME ONE Stop: 01/20/18 15:51 Tuberculin PPD (Aplisol) 5 unit .ROUTE .STK-MED ONE Stop: 01/20/18 15:51 - Exam General: Alert, Oriented, Cooperative, No Acute Distress Lungs: Clear to Auscultation, Normal Respiratory Effort Cardiovascular: Regular Rate, Regular Rhythm GI/Abdominal Exam: Normal Bowel Sounds, Soft Extremities: Normal Inspection, Normal Range of Motion, No Pedal Edema Neurological: No New Focal Deficit Psy/Mental Status: Alert, Normal Affect, Normal Mood - Problem List & Annotations (1) Cavitary lesion of lung SNOMED Code(s): 598315630 Code(s): J98.4 - OTHER DISORDERS OF LUNG Status: Acute Current Visit: No (2) History of tobacco abuse SNOMED Code(s): 5507742626429, 6649670029204 Code(s): Z87.891 - PERSONAL HISTORY OF NICOTINE DEPENDENCE Status: Chronic Current Visit: Yes (3) Asthma SNOMED Code(s): 773842708 Code(s): J45.909 - UNSPECIFIED ASTHMA, UNCOMPLICATED Status: Chronic Current Visit: Yes (4) COPD (chronic obstructive pulmonary disease) SNOMED Code(s): 29571487 Code(s): J44.9 - CHRONIC OBSTRUCTIVE PULMONARY DISEASE, UNSPECIFIED Status : Chronic Current Visit: Yes Qualifiers: COPD type: chronic bronchitis Chronic bronchitis type: simple Qualified Code(s): J41.0 - Simple chronic bronchitis (5) Anxiety SNOMED Code(s): 29717016 Code(s): F41.9 - ANXIETY DISORDER, UNSPECIFIED Status: Chronic Current Visit: Yes - Problem List Review Problem List Initiated/Reviewed/Updated: Yes - My Orders Last 24 Hours: My Active Orders 01/25/18 05:11 BMP [BASIC METABOLIC PANEL,BMP] [CHEM] AM CBC WITH AUTO DIFF [HEME] AM 01/26/18 05:11 BMP [BASIC METABOLIC PANEL,BMP] [CHEM] AM CBC WITH AUTO DIFF [HEME] AM - Plan Plan:: This 57 year old male admitted with a new cavitary lesion to L upper lung, probable mass or pneumonia 1. Cavitary lesion to lung: Leukocytosis, resolved. Continues to improve.Will transition to Invanz daily IV for daily IV therapy daily. Tuberculin skin test negative. AFB all three sputums sent. First smear negative, awaiting final two to confirm negative TB. Quantiferon pending as well. PICC line placed. Coordinate outpatient IV therapy with Invanz. Regular sputum culture normal respiratory uri. Fungal pending. Outpatient appointments set up with Dr Baxter, [place] and Dr Machado, Pulmonology 2. Asthma/COPD: Continue albuterol PRN. Duonebs PRN. Tolerating Advair. VTE prophylaxis: Lovenox Dispo: Pending AFB smear, 1-2 days.
[2018-01-24] MEDS ORDERED: Ertapenem 1 GM in Sodium Chloride 0.9% 50 ML IV SCH (11:00)
[2018-01-24] MEDS: Ertapenem 1 GM in Sodium Chloride 0.9% 50 ML IV SCH (12:11)
[2018-01-24] MEDS: Enoxaparin 40 MG/0.4 ML Syringe SUBCUT SCH (14:30)
[2018-01-25 06:33] LABS: CHLORIDE,CL 106 mmol/L (98-107); SODIUM,NA 139 mmol/L (136-148)
[2018-01-25] MEDS: Fluticasone/Salmeterol 250-50 MCG Inhalation Powder 14/Diskus INH SCH (09:02)
--- NOTE | 2018-01-25 10:46 | PCM.DCSUM1 ---
Discharge Summary - Hospital Course Brief History: This 57 year old male with pmh of asthma and mild COPD, tobacco use, and alcohol use presented to the ED with concerns of 10 days of productive cough and some chest pain with coughing and moving his L arm. He reports he normally has had a cough but the sputum is always yellow to clear. 10 days ago he awoke and noted brown sputum, which was clear during the day to yellow again. Denies blood in his sputum. He denies feeling fevers chills or significant SOB. He denies URI symptoms. He reports waking up with sweats intermittently but no fevers. He denies malaise, body aches. He reports a few months ago he started dieting to lose weight and has lost 20 lbs intentionally. He reports chest pain, has a feeling of "something up here". (pointing to L upper chest, L axilla, and back). He denies palpitations, abdominal pain, urinary troubles. He is originally from [place], but has been in the [facility] living in his banner for 6 years now. He denies out of the country travel recently. He reports quitting smoking 5 years ago and stopped drinking hard alcohol 3-4 weeks ago. He reports drinking quite heavily prior to this but felt he was making his life worse with the alcohol. In the ED leukocytosis noted at 17,830. Hgb 12.3. Platelets 462. K+ 3.1 BMP otherwise normal. troponin negative. CXR revealed "cavitary mass/infiltrate in left upper lung. Mass is favored. Opportunistic infection or gram negative pneumonia is possibility but less likely." VS have been stable. Afebrile. He was treated with ZOsyn, Duoneb and IVFs. He was admitted inpatient for dyspnea and pneumonia or pulmonary mass. - Discharge Data Discharge Date: 01/25/18 Discharge Disposition: Home, Self-Care 01 Condition: Stable - Discharge Diagnosis/Problem(s) (1) Cavitary lesion of lung SNOMED Code(s): 405620353 ICD Code: J98.4 - OTHER DISORDERS OF LUNG Status: Acute Current Visit: No (2) History of tobacco abuse SNOMED Code(s): 5698231428991, 4274095575350 ICD Code: Z87.891 - PERSONAL HISTORY OF NICOTINE DEPENDENCE Status: Chronic Current Visit: Yes (3) Asthma SNOMED Code(s): 547025129 ICD Code: J45.909 - UNSPECIFIED ASTHMA, UNCOMPLICATED Status: Chronic Current Visit: Yes (4) COPD (chronic obstructive pulmonary disease) SNOMED Code(s): 87876918 ICD Code: J44.9 - CHRONIC OBSTRUCTIVE PULMONARY DISEASE, UNSPECIFIED Status : Chronic Current Visit: Yes Qualifiers: COPD type: chronic bronchitis Chronic bronchitis type: simple Qualified Code(s): J41.0 - Simple chronic bronchitis (5) Anxiety SNOMED Code(s): 81205300 ICD Code: F41.9 - ANXIETY DISORDER, UNSPECIFIED Status: Chronic Current Visit: Yes (6) Ludwigs angina SNOMED Code(s): 578253740 ICD Code: K12.2 - CELLULITIS AND ABSCESS OF MOUTH Status: Chronic Current Visit: Yes (7) Hx of tracheostomy SNOMED Code(s): 412618941 ICD Code: Z98.890 - OTHER SPECIFIED POSTPROCEDURAL STATES Status: Chronic Current Visit: Yes (8) History of ETOH abuse SNOMED Code(s): 599237484 ICD Code: Z87.898 - PERSONAL HISTORY OF OTHER SPECIFIED CONDITIONS Status: Chronic Current Visit: Yes - Patient Instructions Diet: Usual Diet as Tolerated Activity: As Tolerated, No Strenuous Activities Driving: May Drive Today Showering/Bathing: May Shower (Cover PICC line. ) Notify Provider of: Fever, Increased Pain, Swelling and Redness, Drainage, Nausea and/or Vomiting - Discharge Plan Prescriptions/Med Rec: Albuterol [Ventolin HFA] 1 puff INH Q4H PRN #1 inhaler PRN Reason: Shortness Of Breath Ertapenem [INVanz] 1 gm IV Q24H #7 vial Fluticasone/Salmeterol [Advair 250-50] 1 puff INH BID #1 diskus Home Medications: Home Meds Acetaminophen [Tylenol] 650 mg PO Q4H PRN tablet 01/25/18 [Rx] Albuterol [Ventolin HFA] 1 puff INH Q4H PRN #1 inhaler 01/25/18 [Rx] Ertapenem [INVanz] 1 gm IV Q24H #7 vial 01/25/18 [Rx] Fluticasone/Salmeterol [Advair 250-50] 1 puff INH BID #1 diskus 01/25/18 [Rx] Patient Handouts: PICC Home Care Guide, Central Line, Adult, [id number] Referrals: Festus Baxter MD [Ordering Only Provider] - 01/30/18 4:00 pm (Please check in at 3:30 p.m.) Shauna Burnett NP [Nurse Practitioner] - 01/31/18 10:00 am Rebecca Machado MD [Ordering Only Provider] - 03/17/18 1:20 pm - Discharge Summary/Plan Comment DC Time >30 min.: No Discharge Summary/Plan Comment: Discharge Diagnoses: Cavitary lesion, RAY Asthma Mild COPD Anxiety Hx tobacco abuse Hx ETOH abuse Hx Lencho's angina Hx Tracheostomy Kavya was admitted for dyspnea and cough that had been persistant over 10 days , mild fevers and productive cough. Initial CXR in ED revealed RAY cavitary lesion, CT recommended for further evaluation. CT of chest revealed "Large 6 cm soft tissue mass with central cavitation is present in the left lung apex. Differential diagnosis includes non-small cell lung cancer, bacterial pneumonia with abscess formation, fungal infection such as aspergillosis, and mycobacterial infection. Pulmonary consultation is recommended for management of this finding. This lesion would be amenable to image guided biopsy. Moderate left mediastinal lymphadenopathy could be reactive or metastatic. No other signs of metastatic disease in the chest or upper abdomen." At this time I discussed this imaging with Dr Machado, Pulmonology at [facility]. She recommended ID consultation and treatment for possible lung abscess, anaerobic pneumonia and felt Zosyn was good. She did not want to perform any type of biopsy acutely due to the risk of infection. But he may need biopsy of this mass at some point to rule out malignancy and further investigate mass. Leukocytosis noted on admission at 17,000. She also did recommend ruling of TB. He was placed on Airborne precautions, we obtained AFB sputum x 3, Performed tuberculin skin testing and obtained Quantiferon gold testing as well. We also sent sputum and work up for aspergillosis, which are still pending at this time. TB work-up revealed all three AFB smears to be negative for AFB, cultures still pending with [facility] lab. Tuberculin skin testing, after 72 hours as negative and Quatiferon gold returned negative as well. I spoke with Dr Baxter who agreed with this work up and recommended at least 2 weeks of IV antibiotics, Invanz 1 gm. She would see patient and would like a repeat chest CT in 2-3 weeks to evaluate cavitary lung mass for improvement. She would then decide if further IV therapy would be needed and order this. Zosyn was continued throughout stay, leukocytosis resolved. No longer febrile. Cough has improved significantly, no only mildy productive and yellow to clear. He is very eager for discharge. PICC line was placed to L upper arm for IV therapy. He will be set up for outpatient IV therapy, Invaz 1 gm IV daily. he was highly encouraged to stay free of smoking and alcohol, which he adamantly agrees with and will not start using again. He had run out of Symbicort and requested to be changed to something else. He was placed on Advair and he has reported improvement in wheezing and dyspnea. He will be continued on this for now and will see Pulmonology as outpatient for further evaluation. He is to return to the ED or clinic if concerns should arise. He will be instructed on outpatient IV therapy course and follow up as they are arranged. Kavya is aware of the follow ups in place and is very agreeable to make each of these appointment. PCP Shauna Burnett, [facility] here in [place]. Along with Dr Baxter, ID in [facility], [place] and Dr Machado, pulmonology in [place]. - General Info Date of Service: 01/25/18 Admission Dx/Problem (Free Text: Admission Diagnosis/Problem Admission Diagnosis/Problem Pneumonia Subjective Update: Feeling good today. Cough continues intermittently, but much improved. No chest pain or SOB. no other concerns. Eager to be discharged today. Functional Status: Reports: Pain Controlled, Tolerating Diet, Ambulating, Urinating - Review of Systems General: Reports: No Symptoms. Denies: Fever, Weakness, Fatigue HEENT: Reports: No Symptoms Pulmonary: Reports: Cough, Sputum (yellow). Denies: Shortness of Breath, Hemoptysis, Wheezing Cardiovascular: Reports: No Symptoms. Denies: Chest Pain Gastrointestinal: Reports: No Symptoms. Denies: Abdominal Pain, Nausea, Vomiting Genitourinary: Reports: No Symptoms. Denies: Dysuria, Frequency, Burning Neurological: Reports: No Symptoms Psychiatric: Reports: No Symptoms - Patient Data Vitals - Most Recent: Last Vital Signs Temp 97.5 F 01/25/18 04:00 Pulse 73 01/25/18 08:00 Resp 12 01/25/18 08:00 BP 125/76 01/25/18 08:00 Pulse Ox 94 L 01/25/18 08:00 Weight - Most Recent: 99.79 kg I&O - Last 24 hours: Intake & Output 01/24/18 01/25/18 01/25/18 22:59 06:59 14:59 Intake Total 1500 300 Output Total 2000 Balance -500 300 Lab Results - Last 24 hrs: Laboratory Results - last 24 hr 01/19/18 01/25/18 01/25/18 Range/Units 17:45 06:00 06:00 WBC 9.47 (4.0-11.0) K/uL RBC 3.56 L (4.50-5.90) M/uL Hgb 11.2 L (13.0-17.0) g/dL Hct 33.6 L (38.0-50.0) % MCV 94.4 (80.0-98.0) fL MCH 31.5 (27.0-32.0) pg MCHC 33.3 (31.0-37.0) g/dL RDW Std Deviation 44.4 (28.0-62.0) fl RDW Coeff of Joshua 13 (11.0-15.0) % Plt Count 367 (150-400) K/uL MPV 11.40 (7.40-12.00) fL Neut % (Auto) 68.8 (48.0-80.0) % Lymph % (Auto) 18.6 (16.0-40.0) % [place] % (Auto) 8.7 (0.0-15.0) % Eos % (Auto) 3.6 (0.0-7.0) % Baso % (Auto) 0.3 (0.0-1.5) % Neut # (Auto) 6.5 H (1.4-5.7) K/uL Lymph # (Auto) 1.8 (0.6-2.4) K/uL [place] # (Auto) 0.8 (0.0-0.8) K/uL Eos # (Auto) 0.3 (0.0-0.7) K/uL Baso # (Auto) 0.0 (0.0-0.1) K/uL Nucleated RBC % 0.0 /100WBC Nucleated RBCs # 0 K/uL Sodium 139 (136-148) mmol/L Potassium 4.1 (3.5-5.1) mmol/L Chloride 106 (98-107) mmol/L Carbon Dioxide 26.2 (21.0-32.0) mmol/L BUN 8 (7.0-18.0) mg/dL Creatinine 0.9 (0.8-1.3) mg/dL Est Cr Clr Drug Dosing 83.65 mL/min Estimated GFR (MDRD) > 60.0 ml/min Glucose 115 H (74-106) mg/dL Calcium 8.9 (8.5-10.1) mg/dL TB (QFT) Gold In Tube Negative (Negative) TB Test (QFT) Nil 0.09 IU/mL TB Test (QFT) Mitogen >10.00 IU/mL TB Test (QFT) Antigen 0.08 IU/mL TB Test Antigen - Nil <0.00 IU/mL TB Positive Criteria Comment TB Test (QFT) Interp Comment TONY Results - Last 24 hrs: Microbiology 01/19/18 16:00 Gram Stain - Final Sputum - Expectorated Sputum Culture - Final Normal Respiratory Denise Med Orders - Current: Current Medications Acetaminophen (Tylenol) 650 mg PO Q4H PRN PRN Reason: Pain (mild 1-3) Last Admin: 01/21/18 23:54 Dose: 650 mg Albuterol (Ventolin Hfa) 8 gm INH Q4H PRN PRN Reason: Shortness of Breath Albuterol/Ipratropium (Duoneb 3.0-0.5 Mg/3 Ml) 3 ml NEB Q4HRRT PRN PRN Reason: dyspnea/wheezing Last Admin: 01/23/18 18:54 Dose: 3 ml Enoxaparin Sodium (Lovenox) 40 mg SUBCUT Q24H GAYATHRI Last Admin: 01/24/18 14:30 Dose: 40 mg Ertapenem 1 gm/ Sodium (Chloride) 50 mls @ 100 mls/hr IV Q24H GAYATHRI Last Admin: 01/24/18 12:11 Dose: 100 mls/hr Ondansetron HCl (Zofran Odt) 4 mg PO Q4H PRN PRN Reason: nausea, able to take PO Fluticasone/Salmeterol (Advair Diskus 250-50) 1 puff INH BID [facility] Last Admin: 01/25/18 09:02 Dose: 1 puff Discontinued Medications Albuterol/Ipratropium (Duoneb 3.0-0.5 Mg/3 Ml) 3 ml NEB ONETIME ONE Stop: 01/19/18 11:50 Last Admin: 01/19/18 12:17 Dose: 3 ml Sodium Chloride (Normal Saline) 1,000 mls @ 125 mls/hr IV STAT GAYATHRI Stop: 01/19/18 23:00 Last Admin: 01/19/18 12:18 Dose: 125 mls/hr Piperacillin Sod/Tazobactam (Sod 3.375 gm/ Sodium Chloride) 50 mls @ 100 mls/ hr IV ONETIME ONE Stop: 01/19/18 13:10 Last Admin: 01/19/18 13:10 Dose: 100 mls/hr Sodium Chloride (Normal Saline) Confirm Administered Dose 50 mls @ as directed .ROUTE .STK-MED ONE Stop: 01/19/18 12:58 Last Admin: 01/19/18 14:59 Dose: Not Given Sodium Chloride (Normal Saline) Confirm Administered Dose 50 mls @ as directed .ROUTE .STK-MED ONE Stop: 01/19/18 13:05 Last Admin: 01/19/18 14:59 Dose: Not Given Piperacillin Sod/Tazobactam (Sod 4.5 gm/ Sodium Chloride) 100 mls @ 100 mls/hr IV Q6H [facility] Last Admin: 01/24/18 05:07 Dose: 100 mls/hr Ertapenem 1 gm/ Sodium (Chloride) 50 mls @ 100 mls/hr IV Q24H [facility] Last Admin: 01/24/18 12:34 Dose: Not Given Iopamidol (Isovue Multipack-370 (76%)) 75 ml IVPUSH ONETIME STA Stop: 01/19/18 15:29 Last Admin: 01/19/18 15:44 Dose: 75 ml Budesonide/Formoterol [ Symbicort 160-4.5 Mcg] 2 Puff 1 each INH BID [facility] Last Admin: 01/23/18 10:01 Dose: Not Given Potassium Chloride (Klor-Con M20) 40 meq PO ONETIME ONE Stop: 01/19/18 15:36 Last Admin: 01/19/18 16:01 Dose: 40 meq Potassium Chloride (Klor-Con M20) 40 meq PO ONETIME ONE Stop: 01/21/18 12:17 Last Admin: 01/21/18 12:36 Dose: 40 meq Tuberculin PPD (Aplisol) 5 unit IDERM ONETIME ONE Stop: 01/20/18 15:06 Last Admin: 01/20/18 15:55 Dose: 5 unit Tuberculin PPD (Aplisol) 5 unit IDERM ONETIME ONE Stop: 01/20/18 15:51 Tuberculin PPD (Aplisol) 5 unit .ROUTE .STK-MED ONE Stop: 01/20/18 15:51 - Exam General: Reports: Alert, Oriented, Cooperative, No Acute Distress Neck: Reports: Supple Lungs: Reports: Clear to Auscultation, Normal Respiratory Effort. Denies: Decreased Breath Sounds, Crackles, Wheezing Cardiovascular: Reports: Regular Rate, Regular Rhythm GI/Abdominal Exam: Normal Bowel Sounds, Soft, Non-Tender Extremities: Normal Inspection, Normal Range of Motion, Non-Tender, No Pedal Edema, Normal Capillary Refill, Other (PICC line to L upper arm, intact. No erythema or eccyhmosis.) Wound/Incisions: Reports: Healing Well Neurological: Reports: No New Focal Deficit Psy/Mental Status: Reports: Alert, Normal Affect, Normal Mood
[2018-01-25 11:23] VITALS: BP 128/81
[2018-01-25] MEDS: Ertapenem 1 GM in Sodium Chloride 0.9% 50 ML IV SCH (11:31)
== END 2018-01-25 13:25 | disposition home or self-care (01) | DRG 206 ==
LOC: MW.ED 11:45 → MW.ICU 13:04 → OBSVTOIN 01-20 10:43 → MW.ICU 01-20 15:37 → MW.MS 01-24 07:00
PROVIDERS: ADMIT Internal Medicine; ATTEND Internal Medicine
PROC: 02HV33Z Insertion of Infusion Device into Superior Vena Cava, Percutaneous Approach (ICD-10-PCS; principal; 2018-01-23)
DX: J98.4 Other disorders of lung (principal); K12.2 Cellulitis and abscess of mouth; J41.0 Simple chronic bronchitis; F41.9 Anxiety disorder, unspecified; Z87.891 Personal history of nicotine dependence; Z79.899 Other long term (current) drug therapy; Z98.890 Other specified postprocedural states; Z87.898 Personal history of other specified conditions
CPT/HCPCS: 36415; 36569; 71045; 71045-26; 71260; 71260-26; 76937; 76937-26; 77001; 77001-26; 80048; 80053; 81001; 83690; 83735; 84484; 85025; 85610; 86480; 86580; 87070; 87102; 87205; 93005; 94640; 94664; 96361; 96365; 99285; 99285-25; A9270-GY; J1335; J1650; J2543; J7030; J7040; J7050; Q9967

== ENCOUNTER 2019-08-24 19:02 | Emergency (ER) | payer BC ==
[2019-08-24 19:13] VITALS: BP 137/93; PULSE 71
--- NOTE | 2019-08-24 19:34 | EDM.PDOC ---
ED HPI GENERAL MEDICAL PROBLEM - General Chief Complaint: General Stated Complaint: MED CLEARANCE Time Seen by Provider: 08/24/19 19:18 Source of Information: Reports: Patient History Limitations: Reports: No Limitations - History of Present Illness INITIAL COMMENTS - FREE TEXT/NARRATIVE: The patient complains of no problems Onset: Unknown/Unsure Duration: Resolved Prior to Arrival Improves with: Reports: None Worsens with: Reports: None Associated Symptoms: Reports: No Other Symptoms - Related Data Allergies Allergy/AdvReac Type Severity Reaction Status Date / Time No Known Allergies Allergy Verified 08/24/19 19:11 Home Meds: Home Meds Albuterol [Ventolin HFA] 1 - 2 puff INH ASDIRECTED PRN 08/24/19 [History] Fluticasone/Vilanterol [Breo Ellipta 200-25 MCG Inhalation Kit] 1 puff INH DAILY 08/24/19 [History] Past Medical History HEENT History: Reports: None Cardiovascular History: Reports: SOB on Exertion Respiratory History: Reports: Asthma, COPD, SOB Gastrointestinal History: Reports: None Genitourinary History: Reports: None Musculoskeletal History: Reports: None Neurological History: Reports: None Psychiatric History: Reports: Anxiety Endocrine/Metabolic History: Reports: Obesity/BMI 30+ Hematologic History: Reports: None Oncologic (Cancer) History: Reports: None Dermatologic History: Reports: None - Infectious Disease History Infectious Disease History: Reports: None. Denies: TB - Past Surgical History HEENT Surgical History: Reports: None Respiratory Surgical History: Reports: Tracheostomy, Other (See Below) Other Respiratory Surgeries/Procedures: Had tracheostomy at age 36 due to Ludwigs angina with subsequent I&D of submandibular abscess after infected tooth was extracted GI Surgical History: Reports: None Musculoskeletal Surgical History: Reports: None Social & Family History - Family History Family Medical History: Noncontributory - Tobacco Use Smoking Status *Q: Never Smoker - Caffeine Use Caffeine Use: Reports: None - Recreational Drug Use Recreational Drug Use: No - Living Situation & Occupation Living situation: Reports: Single Occupation: Unemployed (Lives in [facility].) ED ROS GENERAL - Review of Systems Review Of Systems: Comprehensive ROS is negative, except as noted in HPI. Constitutional: Reports: No Symptoms HEENT: Reports: No Symptoms Respiratory: Reports: No Symptoms Cardiovascular: Reports: No Symptoms Endocrine: Reports: No Symptoms GI/Abdominal: Reports: No Symptoms : Reports: No Symptoms Musculoskeletal: Reports: No Symptoms Skin: Reports: No Symptoms Neurological: Reports: No Symptoms Psychiatric: Reports: No Symptoms Hematologic/Lymphatic: Reports: No Symptoms, Swollen Glands Immunologic: Reports: No Symptoms ED EXAM, GENERAL - Physical Exam Exam: See Below Exam Limited By: No Limitations General Appearance: Alert, WD/WN, No Apparent Distress Nose: Normal Inspection, Normal Mucosa, No Blood Throat/Mouth: Normal Inspection, Normal Lips, Normal Teeth Head: Atraumatic, Normocephalic Neck: Normal Inspection, Supple, Non-Tender Respiratory/Chest: No Respiratory Distress, Lungs Clear, Normal Breath Sounds Cardiovascular: Normal Peripheral Pulses, Regular Rate, Rhythm, No Edema, No JVD , No Murmur GI/Abdominal: Normal Bowel Sounds, Soft, Non-Tender (Male) Exam: Deferred Rectal (Males) Exam: Deferred Back Exam: Normal Inspection Extremities: Normal Inspection, Normal Range of Motion, No Pedal Edema, Normal Capillary Refill Neurological: Alert, Oriented, CN II-XII Intact, Normal Cognition, Normal Reflexes, No Motor/Sensory Deficits Psychiatric: Normal Affect, Normal Mood Skin Exam: Warm, Dry, Intact, Normal Color Lymphatic: No Adenopathy Course - Vital Signs Last Recorded V/S: Last Vital Signs Temp 97.3 F 08/24/19 19:08 Pulse 71 08/24/19 19:08 Resp 18 08/24/19 19:08 BP 137/93 H 08/24/19 19:08 Pulse Ox 96 08/24/19 19:08 Departure - Departure Time of Disposition: 19:37 Disposition: Home, Self-Care 01 Clinical Impression: Well adult exam - Discharge Information Referrals: Allie Burkett MD [Primary Care Provider] - Forms: ED Department Discharge Sepsis Event Note - Evaluation Sepsis Screening Result: No Definite Risk - Focused Exam Vital Signs: Vital Signs Temp Pulse Resp BP Pulse Ox 08/24/19 19:08 97.3 F 71 18 137/93 H 96 Date Exam was Performed: 08/24/19 Time Exam was Performed: 19:34
== END 2019-08-24 19:45 ==
LOC: MW.ED 19:02
DX: Z00.00 Encounter for general adult medical examination without abnormal findings (principal); J44.9 Chronic obstructive pulmonary disease, unspecified; Z79.51 Long term (current) use of inhaled steroids
CPT/HCPCS: 99282

== ENCOUNTER 2019-11-12 12:48 | Emergency (ER) | payer BC, OTHER ==
[2019-11-12 13:04] VITALS: BP 137/98; PULSE 92
--- NOTE | 2019-11-12 13:20 | EDM.PDOC ---
ED HPI GENERAL MEDICAL PROBLEM - General Chief Complaint: Respiratory Problem Stated Complaint: COUGH Time Seen by Provider: 11/12/19 13:17 Source of Information: Reports: Patient History Limitations: Reports: No Limitations - History of Present Illness INITIAL COMMENTS - FREE TEXT/NARRATIVE: HISTORY AND PHYSICAL: History of present illness: Patient is a 59-year-old male presents to the ED with complaint of cough, tactile fever, and shortness of breath. Patient reports history of asthma and COPD. He states symptoms started 8 days ago. He states he was needing his rescue inhaler a couple of days ago but symptoms has mostly resolved. He states he his no longer having a fever or shortness of breath. He states he has a mild occasional cough still. He denies chest pain. Review of systems: As per history of present illness and below otherwise all systems reviewed and negative. Past medical history: As per history of present illness and as reviewed below otherwise noncontributory. Surgical history: As per history of present illness and as reviewed below otherwise noncontributory. Social history: No reported history of drug or alcohol abuse. Family history: As per history of present illness and as reviewed below otherwise noncontributory. Physical exam: General: Patient sitting comfortably in no acute distress and nontoxic appearing HEENT: Atraumatic, normocephalic, pupils reactive, negative for conjunctival pallor or scleral icterus, mucous membranes moist, throat clear, neck supple, nontender, trachea midline. No meningeal signs. Lungs: Clear to auscultation, breath sounds equal bilaterally, chest nontender. Heart: S1S2, regular, negative for clicks, rubs, or overt murmur. Abdomen: Soft, nondistended, nontender. Negative for masses or hepatosplenomegaly. Negative for costovertebral tenderness. No rigidity, rebound , guarding. Pelvis: Stable nontender. Genitourinary: Deferred. Rectal: Deferred. Extremities: Atraumatic, negative for cords or calf pain. Neurovascular unremarkable. Neuro: Awake, alert, oriented. Cranial nerves II through XII unremarkable. Cerebellum unremarkable. Motor and sensory unremarkable throughout. Exam nonfocal. Notes: Diagnostics: Chest x-ray, influenza, COVID-19 Therapeutics: none Prescriptions: none Impression: Cough Plan: Continue inhaler as needed Please self quarantine until you hear the results of your COVID-19 test in 48- 72 hours. If this result is negative we recommend that you continue to self quarantine for at least 7 days after symptom onset and 48 hours symptom-free (cough and fever) Follow up with primary care provider Return to ED as needed as discussed Definitive disposition and diagnosis as appropriate pending reevaluation and review of above. - Related Data Allergies Allergy/AdvReac Type Severity Reaction Status Date / Time No Known Allergies Allergy Verified 11/12/19 12:56 Home Meds: Home Meds Albuterol [Ventolin HFA] 1 - 2 puff INH ASDIRECTED PRN 08/24/19 [History] Fluticasone/Vilanterol [Breo Ellipta 200-25 MCG Inhalation Kit] 1 puff INH DAILY 08/24/19 [History] Fluticasone Propionate [Flonase] 2 sprays NS DAILY 11/12/19 [History] Montelukast [Singulair] 10 mg PO DAILY 11/12/19 [History] Past Medical History HEENT History: Reports: None Cardiovascular History: Reports: SOB on Exertion Respiratory History: Reports: Asthma, COPD, SOB Gastrointestinal History: Reports: None Genitourinary History: Reports: None Musculoskeletal History: Reports: None Neurological History: Reports: None Psychiatric History: Reports: Anxiety Endocrine/Metabolic History: Reports: Obesity/BMI 30+ Hematologic History: Reports: None Oncologic (Cancer) History: Reports: None Dermatologic History: Reports: None - Infectious Disease History Infectious Disease History: Reports: None - Past Surgical History HEENT Surgical History: Reports: None Respiratory Surgical History: Reports: Tracheostomy, Other (See Below) Other Respiratory Surgeries/Procedures: Had tracheostomy at age 36 due to [place] angina with subsequent I&D of submandibular abscess after infected tooth was extracted GI Surgical History: Reports: None Musculoskeletal Surgical History: Reports: None Social & Family History - Family History Family Medical History: Noncontributory - Tobacco Use Smoking Status *Q: Former Smoker Used Tobacco, but Quit: Yes Month/Year Tobacco Last Used: 2012 - Caffeine Use Caffeine Use: Reports: Tea - Recreational Drug Use Recreational Drug Use: No - Living Situation & Occupation Living situation: Reports: Single Occupation: Unemployed (Lives in [facility].) ED ROS GENERAL - Review of Systems Review Of Systems: Comprehensive ROS is negative, except as noted in HPI. ED EXAM, GENERAL - Physical Exam Exam: See Below (see dictation) Course - Vital Signs Last Recorded V/S: Last Vital Signs Temp 97.6 F 11/12/19 12:58 Pulse 92 11/12/19 12:58 Resp 16 11/12/19 12:58 BP 137/98 H 11/12/19 12:58 Pulse Ox 97 11/12/19 12:58 - Orders/Labs/Meds Orders: Active Orders 24 hr Category Date Time Status CORONAVIRUS COVID-19 PCR PHL [MREF] Stat Lab 11/12/19 14:11 Ordered Isolation [COMM] Routine Oth 11/12/19 13:06 Active Departure - Departure Time of Disposition: 14:12 Disposition: Home, Self-Care 01 Condition: Good Clinical Impression: Cough - Discharge Information Instructions: Cough, Adult, [id number] Referrals: Allie Burkett MD [Primary Care Provider] - Forms: ED Department Discharge Additional Instructions: The following information is given to patients seen in the emergency department who are being discharged to home. This information is to outline your options for follow-up care. We provide all patients seen in our emergency department with a follow-up referral. The need for follow-up, as well as the timing and circumstances, are variable depending upon the specifics of your emergency department visit. If you don't have a primary care physician on staff, we will provide you with a referral. We always advise you to contact your personal physician following an emergency department visit to inform them of the circumstance of the visit and for follow-up with them and/or the need for any referrals to a consulting specialist. The emergency department will also refer you to a specialist when appropriate. This referral assures that you have the opportunity for follow-up care with a specialist. All of these measure are taken in an effort to provide you with optimal care, which includes your follow-up. Under all circumstances we always encourage you to contact your private physician who remains a resource for coordinating your care. When calling for follow-up care, please make the office aware that this follow-up is from your recent emergency room visit. If for any reason you are refused follow-up, please contact the [facility] Emergency Department at and asked to speak to the emergency department charge nurse. [facility] [address] [place] [id number] [facility] [address] [place] [address] Continue inhaler as needed Please self quarantine until you hear the results of your COVID-19 test in 48- 72 hours. If this result is negative we recommend that you continue to self quarantine for at least 7 days after symptom onset and 48 hours symptom-free (cough and fever) Follow up with primary care provider Return to ED as needed as discussed Sepsis Event Note - Evaluation Sepsis Screening Result: No Definite Risk - Focused Exam Vital Signs: Vital Signs Temp Pulse Resp BP Pulse Ox 11/12/19 12:58 97.6 F 92 16 137/98 H 97 Date Exam was Performed: 11/12/19 Time Exam was Performed: 14:28 - My Orders Last 24 Hours: My Active Orders 11/12/19 13:06 Isolation [COMM] Routine 11/12/19 14:11 CORONAVIRUS COVID-19 PCR PHL [MREF] Stat - Assessment/Plan Last 24 Hours: My Active Orders 11/12/19 13:06 Isolation [COMM] Routine 11/12/19 14:11 CORONAVIRUS COVID-19 PCR PHL [MREF] Stat
--- NOTE | 2019-11-12 13:32 | CR ---
Chest: Portable view was obtained. Comparison: Prior chest x-ray of 06/30/18. Heart size and mediastinum are normal. Lungs are clear with no acute parenchymal change. Bony structures are grossly intact. Impression: 1. Nothing acute is appreciated on portable chest x-ray. Diagnostic code #1 This report was dictated in MDT
== END 2019-11-12 14:33 | disposition home or self-care (01) ==
LOC: MW.ED 12:48
DX: R05 Cough (principal); J44.9 Chronic obstructive pulmonary disease, unspecified; E66.9 Obesity, unspecified; Z68.29 Body mass index [BMI] 29.0-29.9, adult; Z87.891 Personal history of nicotine dependence; Z79.899 Other long term (current) drug therapy
CPT/HCPCS: 71045; 71045-26; 87804; 99283-25

== ENCOUNTER 2020-05-24 10:13 | Emergency (ER) | payer BC, OTHER ==
--- NOTE | 2020-05-24 10:42 | EDM.PDOC ---
ED HPI GENERAL MEDICAL PROBLEM - General Chief Complaint: Respiratory Problem Stated Complaint: DIFFICULTY BREATHING Time Seen by Provider: 05/24/20 10:14 Source of Information: Reports: Patient History Limitations: Reports: No Limitations - History of Present Illness INITIAL COMMENTS - FREE TEXT/NARRATIVE: HISTORY AND PHYSICAL: History of present illness: Patient is a 59-year-old male who presents to the ED today with concern of feeling short of breath and states that this is worse with exertion over the past 2 to 3 days. Patient states he has a history of COPD and generally is short of breath per his baseline. Patient states that from time to time he gets exacerbations in his COPD which generally calm down with his inhalers. Patient states he has been using his inhalers without improvement of his shortness of breath. Patient states that he works at [employer] and he does have one coworker that he is in close contact with who is been out for 2 weeks with an illness but is unsure if this is COVID or not so is not sure if he has been exposed. Patient states he is concerned about potential COVID infection. Patient states the shortness of breath is typical of his usual COPD exacerbations and denies any chest pain associated with it. Patient denies fever, chills, chest pain, or cough. Denies headache, neck stiff ness, change in vision, syncope, or near syncope. Denies nausea, vomiting, abdominal pain, diarrhea, constipation, or dysuria. Has not noted any blood in urine or stool. Patient has been eating and drinking appropriately. Review of systems: As per history of present illness and below otherwise all systems reviewed and negative. Past medical history: As per history of present illness and as reviewed below otherwise noncontributory. Surgical history: As per history of present illness and as reviewed below otherwise noncontributory. Social history: See social history for further information Family history: As per history of present illness and as reviewed below otherwise noncontributory. Physical exam: General: Patient is alert, oriented, and in no acute distress. Patient sitting comfortably on exam table. HEENT: Atraumatic, normocephalic, pupils equal and reactive bilaterally, negative for conjunctival pallor or scleral icterus, mucous membranes moist, TMs normal bilaterally, throat clear, neck supple, nontender, trachea midline. No drooling or trismus noted. No meningeal signs. No hot potato voice noted. Lungs: Patient speaking clearly without breathlessness, no wheezing or stridor, no accessory muscle use or respiratory distress. Auscultation deferred due to current COV-ID 19 outbreak. Heart: Auscultation deferred due to current COV-ID 19 outbreak. Abdomen: Soft, nondistended, nontender. Negative for masses or hepatosplenomegaly. Negative for costovertebral tenderness. Pelvis: Stable nontender. Genitourinary: Deferred. Rectal: Deferred. Skin: Intact, warm, dry. No lesions or rashes noted. Extremities: Atraumatic, negative for cords or calf pain. Neurovascular unremarkable. Neuro: Awake, alert, oriented. Cranial nerves II through XII unremarkable. Cerebellum unremarkable. Motor and sensory unremarkable throughout. Exam nonfocal. Notes: EKG reviewed by me and shows sinus bradycardia with a rate of 57bmp with no sign of acute st changes, or acute ischemic changes. Qtc 401. Admission for observation was offered to patient but he declines at this time. All risks vs benefits discussed with patient and expresses understanding. Signs and symptoms that would prompt return to the ED thoroughly discussed with patient. Discussed importance for follow-up with a primary care provider. Voices understanding and is agreeable to plan of care. Denies any further questions or concerns at this time. Diagnostics: EKG, CBC, CMP, UA, DDimer, CXR, Trop, COVID19 Therapeutics: None Prescription: Prednisone, Azithromycin Impression: COPD exacerbation Plan: 1. Take medication as prescribed. 2. Use your at home inhalers as prescribed to you as discussed. 3. Return to the ED as needed and as discussed 4. Follow-up with a primary care provider as discussed. Definitive disposition and diagnosis as appropriate pending reevaluation and review of above. - Related Data Allergies Allergy/AdvReac Type Severity Reaction Status Date / Time No Known Allergies Allergy Verified 05/24/20 10:22 Home Meds: Home Meds Albuterol [Ventolin HFA] 1 - 2 puff INH ASDIRECTED PRN 08/24/19 [History] Fluticasone/Vilanterol [Breo Ellipta 200-25 MCG Inhalation Kit] 1 puff INH DAILY 08/24/19 [History] Montelukast [Singulair] 10 mg PO DAILY 11/12/19 [History] Loratadine [Claritin] 1 tab PO BEDTIME 05/24/20 [History] Past Medical History HEENT History: Reports: None Cardiovascular History: Reports: SOB on Exertion Respiratory History: Reports: Asthma, COPD, SOB Gastrointestinal History: Reports: None Genitourinary History: Reports: None Musculoskeletal History: Reports: None Neurological History: Reports: None Psychiatric History: Reports: Anxiety Endocrine/Metabolic History: Reports: Obesity/BMI 30+ Hematologic History: Reports: None Oncologic (Cancer) History: Reports: None Dermatologic History: Reports: None - Infectious Disease History Infectious Disease History: Reports: None - Past Surgical History HEENT Surgical History: Reports: None Respiratory Surgical History: Reports: Tracheostomy, Other (See Below) Other Respiratory Surgeries/Procedures: Had tracheostomy at age 36 due to [place] angina with subsequent I&D of submandibular abscess after infected tooth was extracted GI Surgical History: Reports: None Musculoskeletal Surgical History: Reports: None Social & Family History - Family History Family Medical History: Noncontributory - Tobacco Use Smoking Status *Q: Former Smoker Used Tobacco, but Quit: Yes Month/Year Tobacco Last Used: 2012 - Caffeine Use Caffeine Use: Reports: Tea - Recreational Drug Use Recreational Drug Use: No - Living Situation & Occupation Living situation: Reports: Single Occupation: Unemployed (Lives in [facility].) ED ROS GENERAL - Review of Systems Review Of Systems: Comprehensive ROS is negative, except as noted in HPI. ED EXAM, GENERAL - Physical Exam Exam: See Below (see dictation) Course - Vital Signs Last Recorded V/S: Last Vital Signs Temp 96.2 F L 05/24/20 10:19 Pulse 95 05/24/20 10:19 Resp 18 05/24/20 10:19 BP 164/96 H 05/24/20 10:19 Pulse Ox 96 05/24/20 10:19 - Orders/Labs/Meds Orders: Active Orders 24 hr Category Date Time Status Cardiac Monitoring [RC] . DIRECTED Care 05/24/20 10:31 Active EKG Documentation Completion [RC] STAT Care 05/24/20 10:32 Active CORONAVIRUS COVID-19 PCR PHL Stat Lab 05/24/20 10:50 Received Labs: Laboratory Tests 05/24/20 05/24/20 05/24/20 Range/Units 10:49 10:50 10:50 WBC 5.16 (4.0-11.0) K/uL RBC 4.34 L (4.50-5.90) M/uL Hgb 14.5 (13.0-17.0) g/dL Hct 41.6 (38.0-50.0) % MCV 95.9 (80.0-98.0) fL MCH 33.4 H (27.0-32.0) pg MCHC 34.9 (31.0-37.0) g/dL RDW Std Deviation 42.4 (28.0-62.0) fl RDW Coeff of Joshua 12 (11.0-15.0) % Plt Count 234 (150-400) K/uL MPV 11.40 (7.40-12.00) fL Neut % (Auto) 63.6 (48.0-80.0) % Lymph % (Auto) 18.0 (16.0-40.0) % Anson % (Auto) 14.3 (0.0-15.0) % Eos % (Auto) 3.3 (0.0-7.0) % Baso % (Auto) 0.8 (0.0-1.5) % Neut # (Auto) 3.3 (1.4-5.7) K/uL Lymph # (Auto) 0.9 (0.6-2.4) K/uL Anson # (Auto) 0.7 (0.0-0.8) K/uL Eos # (Auto) 0.2 (0.0-0.7) K/uL Baso # (Auto) 0.0 (0.0-0.1) K/uL Nucleated RBC % 0.0 /100WBC Nucleated RBCs # 0 K/uL D-Dimer, Quantitative 0.33 (0.0-0.50) mg/L FEU Sodium (136-148) mmol/L Potassium (3.5-5.1) mmol/L Chloride (98-107) mmol/L Carbon Dioxide (21.0-32.0) mmol/L BUN (7.0-18.0) mg/dL Creatinine (0.8-1.3) mg/dL Est Cr Clr Drug Dosing mL/min Estimated GFR (MDRD) ml/min Glucose (74-106) mg/dL Calcium (8.5-10.1) mg/dL Total Bilirubin (0.2-1.0) mg/dL AST (15-37) IU/L ALT (14-63) IU/L Alkaline Phosphatase (46-116) U/L Troponin I (0.000-0.056) ng/mL Total Protein (6.4-8.2) g/dL Albumin (3.4-5.0) g/dL Globulin (2.6-4.0) g/dL Albumin/Globulin Ratio (0.9-1.6) Urine Color DARK YELLOW Urine Appearance CLEAR Urine pH 6.5 (5.0-8.0) Ur Specific [place] 1.015 (1.001-1.035) Urine Protein TRACE H (NEGATIVE) mg/dL Urine Glucose (UA) NEGATIVE (NEGATIVE) mg/dL Urine Ketones 15 H (NEGATIVE) mg/dL Urine Occult Blood NEGATIVE (NEGATIVE) Urine Nitrite NEGATIVE (NEGATIVE) Urine Bilirubin SMALL H (NEGATIVE) Urine Ictotest NEGATIVE Urine Urobilinogen 0.2 (<2.0) EU/dL Ur Leukocyte Esterase NEGATIVE (NEGATIVE) Urine RBC NONE SEEN (0-2/HPF) Urine WBC NONE SEEN (0-5/HPF) Ur Epithelial Cells RARE (NONE-FEW) Urine Bacteria NOT SEEN (NEGATIVE) Urine Mucus LIGHT (NONE-MOD) SARS CoV-2 RNA Rapid LAKISHA (NEGATIVE) 05/24/20 05/24/20 Range/Units 10:50 10:50 WBC (4.0-11.0) K/uL RBC (4.50-5.90) M/uL Hgb (13.0-17.0) g/dL Hct (38.0-50.0) % MCV (80.0-98.0) fL MCH (27.0-32.0) pg MCHC (31.0-37.0) g/dL RDW Std Deviation (28.0-62.0) fl RDW Coeff of Joshua (11.0-15.0) % Plt Count (150-400) K/uL MPV (7.40-12.00) fL Neut % (Auto) (48.0-80.0) % Lymph % (Auto) (16.0-40.0) % Anson % (Auto) (0.0-15.0) % Eos % (Auto) (0.0-7.0) % Baso % (Auto) (0.0-1.5) % Neut # (Auto) (1.4-5.7) K/uL Lymph # (Auto) (0.6-2.4) K/uL Anson # (Auto) (0.0-0.8) K/uL Eos # (Auto) (0.0-0.7) K/uL Baso # (Auto) (0.0-0.1) K/uL Nucleated RBC % /100WBC Nucleated RBCs # K/uL D-Dimer, Quantitative (0.0-0.50) mg/L FEU Sodium 137 (136-148) mmol/L Potassium 3.4 L (3.5-5.1) mmol/L Chloride 100 (98-107) mmol/L Carbon Dioxide 26.0 (21.0-32.0) mmol/L BUN 11 (7.0-18.0) mg/dL Creatinine 0.8 (0.8-1.3) mg/dL Est Cr Clr Drug Dosing 88.61 mL/min Estimated GFR (MDRD) > 60.0 ml/min Glucose 103 (74-106) mg/dL Calcium 8.7 (8.5-10.1) mg/dL Total Bilirubin 1.3 H (0.2-1.0) mg/dL AST 31 (15-37) IU/L ALT 30 (14-63) IU/L Alkaline Phosphatase 79 (46-116) U/L Troponin I < 0.050 (0.000-0.056) ng/mL Total Protein 7.7 (6.4-8.2) g/dL Albumin 3.7 (3.4-5.0) g/dL Globulin 4.0 (2.6-4.0) g/dL Albumin/Globulin Ratio 0.9 (0.9-1.6) Urine Color Urine Appearance Urine pH (5.0-8.0) Ur Specific [place] (1.001-1.035) Urine Protein (NEGATIVE) mg/dL Urine Glucose (UA) (NEGATIVE) mg/dL Urine Ketones (NEGATIVE) mg/dL Urine Occult Blood (NEGATIVE) Urine Nitrite (NEGATIVE) Urine Bilirubin (NEGATIVE) Urine Ictotest Urine Urobilinogen (<2.0) EU/dL Ur Leukocyte Esterase (NEGATIVE) Urine RBC (0-2/HPF) Urine WBC (0-5/HPF) Ur Epithelial Cells (NONE-FEW) Urine Bacteria (NEGATIVE) Urine Mucus (NONE-MOD) SARS CoV-2 RNA Rapid LAKISHA NEGATIVE (NEGATIVE) Departure - Departure Time of Disposition: 11:46 Disposition: Home, Self-Care 01 Clinical Impression: COPD exacerbation - Discharge Information Referrals: Allie Burkett MD [Primary Care Provider] - Forms: ED Department Discharge Additional Instructions: The following information is given to patients seen in the emergency department who are being discharged to home. This information is to outline your options for follow-up care. We provide all patients seen in our emergency department with a follow-up referral. The need for follow-up, as well as the timing and circumstances, are variable depending upon the specifics of your emergency department visit. If you don't have a primary care physician on staff, we will provide you with a referral. We always advise you to contact your personal physician following an emergency department visit to inform them of the circumstance of the visit and for follow-up with them and/or the need for any referrals to a consulting specialist. The emergency department will also refer you to a specialist when appropriate. This referral assures that you have the opportunity for follow-up care with a specialist. All of these measure are taken in an effort to provide you with optimal care, which includes your follow-up. Under all circumstances we always encourage you to contact your private physician who remains a resource for coordinating your care. When calling for follow-up care, please make the office aware that this follow-up is from your recent emergency room visit. If for any reason you are refused follow-up, please contact the [facility] Emergency Department at and asked to speak to the emergency department charge nurse. [facility] [address] [place] [address] [id number] [address] [address] 1. Take medication as prescribed. 2. Use your at home inhalers as prescribed to you as discussed. 3. Return to the ED as needed and as discussed 4. Follow-up with a primary care provider as discussed. Sepsis Event Note (ED) - Evaluation Sepsis Screening Result: Possible Sepsis Risk - Focused Exam Vital Signs: Vital Signs Temp Pulse Resp BP Pulse Ox 05/24/20 10:19 96.2 F L 95 18 164/96 H 96 - My Orders Last 24 Hours: My Active Orders 05/24/20 10:31 Cardiac Monitoring [RC] . DIRECTED 05/24/20 10:32 EKG Documentation Completion [RC] STAT 05/24/20 10:50 CORONAVIRUS COVID-19 PCR PHL Stat - Assessment/Plan Last 24 Hours: My Active Orders 05/24/20 10:31 Cardiac Monitoring [RC] . DIRECTED 05/24/20 10:32 EKG Documentation Completion [RC] STAT 05/24/20 10:50 CORONAVIRUS COVID-19 PCR PHL Stat
--- NOTE | 2020-05-24 11:16 | PCM.SN.2 ---
#1 Interpretation EKG Date: 05/24/20 Time: 10:42 Rhythm: Other (Sinus bradycardia) Rate (Beats/Min): 57 [place]: Normal P-Wave: Present (LAE) QRS: Normal ST-T: Normal QT: Normal Comparison: No Change EKG Interpretation Comments: No STEMI or acute ischemic changes
[2020-05-24 11:32] LABS: BLOOD UREA NITROGEN,BUN 11 mg/dL (7.0-18.0); CHLORIDE,CL 100 mmol/L (98-107); GLUCOSE RANDOM 103 mg/dL (74-106); POTASSIUM,K 3.4 mmol/L (3.5-5.1); SODIUM,NA 137 mmol/L (136-148)
--- NOTE | 2020-05-24 11:33 | CR ---
INDICATION: Dyspnea, history COPD TECHNIQUE: Chest 1 view. COMPARISON: 11/12/2019 FINDINGS: The heart size and the heart size and remain stable and within normal range. The lungs remain clear of acute infiltrates. Minimal linear scarring is present at the right lung base There are no pleural effusions. IMPRESSION: No acute cardiopulmonary disease is evident. Dictated by Joseph Massey MD @ May 24 2020 11:30AM Signed by Dr. Joseph Massey @ May 24 2020 11:33AM
[2020-05-24 11:56] VITALS: BP 148/86; PULSE 66
== END 2020-05-24 11:57 | disposition home or self-care (01) ==
LOC: MW.ED 10:13
DX: J44.1 Chronic obstructive pulmonary disease with (acute) exacerbation (principal); E66.9 Obesity, unspecified; Z68.30 Body mass index [BMI] 30.0-30.9, adult; Z79.899 Other long term (current) drug therapy; Z87.891 Personal history of nicotine dependence; Z20.828 Contact with and (suspected) exposure to other viral communicable diseases
CPT/HCPCS: 36415; 71045; 71045-26; 80053; 81001; 84484; 85025; 85379; 93005; 99283; 99285-25; U0002